=== PATIENT | male | born 1980 | race Caucasian/White ===

== ENCOUNTER → 2018-12-09 | Emergency (ER) | payer BC, SELFPAY ==
[~2018-12-09] MED LIST: D5 0.45 NS 1,000 ML IV ONE; D5 0.45 NS 1,000 ML IV SCH; D50W 25 GM/50 ML SYRINGE IV ONE; ENOXAPARIN 40 MG/0.4 ML SQ SCH; GLUCAGON 1 MG/VIAL IM PRN; INSULIN -REGULAR HUMAN 100 UNIT in NA CHLORIDE 0.9% 100 ML IV SCH; INSULIN -REGULAR HUMAN 50 UNIT/0.5 ML ML ONE; INSULIN GLARGINE 100 UNITS/ML SQ ONE; INSULIN GLARGINE 100 UNITS/ML SQ SCH; NA CHLORIDE 0.9% 1,000 ML IV SCH; NA CHLORIDE 0.9% 1,000 ML ONE; NA CHLORIDE 0.9% 100 ML IV ONE; NACHLORIDE 0.45% 1,000 ML IV SCH; ONDANSETRON 4 MG/2 ML VIAL IV PRN
--- OUTSIDE RECORDS SUMMARY | 2018-12-09 22:26 | XMS REPORT ---
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
--- OUTSIDE RECORDS SUMMARY | 2018-12-09 22:26 | XMS REPORT ---
:1980 Author Organization [employer] Care Team Providers Name Role Phone Acevedo, Theresa Provider Role Unavailable Allergies, Adverse Reactions, Alerts Substance Reaction Event Type N.K.D.A. Info Not Available Non Drug Allergy Problems Problem Type Condition Code Onset Dates Condition Status Assessment Back pain, lumbosacral M54.5 Active Problem [facility] current use of insulin Z79.4 Active Problem Type 2 diabetes mellitus with E11.65 Active hyperglycemia Problem Body mass index (BMI) 23.0-23.9, Z68.23 Active adult Problem Back pain, lumbosacral M54.5 Active Problem Hyperglycemia R73.9 Active Problem GERD (gastroesophageal reflux K21.9 Active disease) Problem Fatigue R53.83 Active Problem Diabetes E11.9 Active Problem Gastrointestinal bleeding K92.2 Active Assessment GERD (gastroesophageal reflux K21.9 Active disease) Assessment Hyperglycemia R73.9 Active Assessment [facility] current use of insulin Z79.4 Active Assessment Body mass index (BMI) 23.0-23.9, Z68.23 Active adult Assessment Type 2 diabetes mellitus with E11.65 Active hyperglycemia Medications Medication Code Code Instructions Start End Status Dosage System Date [facility] 56679980179 100 MG Orally Active 1 tablet Once a day Lisinopril ND 86349931420 5 MG Orally Active 1 tablet Once a day Aspirin [facility] 69438404755 81 MG Orally Active 1 tablet Once a day Jardiance [facility] 12626002182 25 MG Orally Active 1 tablet Once a day Omeprazole [facility] 38584241899 40 MG Orally Active 1 capsule Once a day Zyrtec [facility] 32898529766 10 MG Orally Active 1 tablet Allergy Once a day Silvadene [facility] 82276381601 1 % Externally Active 1 application Once a day to affected area Metformin HCl [facility] 64841318330 1000 MG Orally Active 1 tablet with Twice a day meals Lantus [facility] 06414125136 100 UNIT/ML Active 30 units SoloStar Subcutaneous once daily Tizanidine [facility] 31352171570 2 MG Orally at December 14November Active 1 tablet as HCl bedtime and october 2017, needed increase to 2018 every 8 hours as needed Results No Known Results Summary Purpose eClinicalWorks Submission
--- OUTSIDE RECORDS SUMMARY | 2018-12-09 22:27 | XMS REPORT ---
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
--- OUTSIDE RECORDS SUMMARY | 2018-12-09 22:27 | XMS REPORT ---
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
--- OUTSIDE RECORDS SUMMARY | 2018-12-09 22:27 | XMS REPORT ---
:1980 Author Organization [facility] Address [address] [place] [address] Dr. Dinh [address] [place] [id number] Care Team Providers Name Role Phone Unavailable Unavailable Unavailable Problems This patient has no known problems. Allergies, Adverse Reactions, Alerts This patient has no known allergies or adverse reactions. Medications This patient has no known medications.
--- OUTSIDE RECORDS SUMMARY | 2018-12-09 22:27 | XMS REPORT ---
:1980 Author Organization eClinicalWorks Care Team Providers Name Role Phone Acevedo, Na Provider Role Unavailable Allergies, Adverse Reactions, Alerts Substance Reaction Event Type N.K.D.A. 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 Problem Hyperglycemia R73.9 Active Problem Body mass index (BMI) 23.0-23.9, Z68.23 Active adult Problem Seasonal allergies J30.2 Active Problem Gastrointestinal bleeding K92.2 Active Problem GERD (gastroesophageal reflux K21.9 Active disease) Problem Back pain, lumbosacral M54.5 Active Problem Diabetes E11.9 Active Assessment Hyperglycemia R73.9 Active Assessment Seasonal allergies J30.2 Active Assessment Body mass index (BMI) 23.0-23.9, Z68.23 Active adult Assessment GERD (gastroesophageal reflux K21.9 Active disease) Assessment [facility] current use of insulin Z79.4 Active Assessment Type 2 diabetes mellitus with E11.65 Active hyperglycemia Assessment Acute effusion of left ear H65.192 Active Assessment Back pain, lumbosacral M54.5 Active Assessment Contact dermatitis due to L23.1 Active adhesives, unspecified contact dermatitis type Medications Medication Code Code Instructions Start End Status Dosage System Date Date Metformin HCl [facility] 40455007076 1000 MG Orally Active 1 tablet with Twice a day meals Lisinopril [facility] 93814660014 5 MG Orally Active 1 tablet Once a day Lantus [facility] 07278367219 100 UNIT/ML Active 30 units SoloStar Subcutaneous once daily FreeStyle [facility] 81502549957 - Apr 24, Active as directed Riana 2017 Sensor Clotrimazole- [facility] 35845207999 1-0.05 % Jun 14, Active 1 application Betamethasone Externally 2018 to affected Twice a day area Zyrtec [facility] 78075870596 10 MG Orally Active 1 tablet Allergy Once a day Silvadene [facility] 83304580675 1 % Externally Active 1 application Once a day to affected area Jardiance [facility] 14079921996 25 MG Orally Active 1 tablet Once a day Omeprazole [facility] 00842839188 40 MG Orally Active 1 capsule Once a day FreeStyle [facility] 38932834485 - Apr 24, Active as directed Riana 2017 [place] [facility] 53787868273 100 MG Orally Active 1 tablet Once a day Aspirin [facility] 76763933089 81 MG Orally Active 1 tablet Once a day Results No Known Results Summary Purpose eClinicalWorks Submission
[2018-12-10 00:17] LABS: Absolute Lymphocytes (CBC) 1.6 K/uL (0.7-4.9); Basophils % 0.7 % (0-1.3); Eosinophils % 4.7 % (0-4.4); MPV 10.3 fL (7.6-11.3); Monocytes % 9.2 % (3.3-12.3); RBC Red Blood Cell Count 4.27 M/uL (4.33-5.43)
[2018-12-10 00:18] LABS: Urine Blood NEGATIVE (NEG); Urine Glucose 2+ (NEG); Urine Protein NEGATIVE (NEG); Urine pH 5.5 (5.0-7.0)
[2018-12-10 00:22] LABS: ALT/SGPT 24 U/L (12-78); AST/SGOT 16 U/L (15-37); Albumin 3.8 g/dL (3.4-5.0); Alkaline Phosphatase 72 U/L (45-117); BUN Blood Urea Nitrogen 21 mg/dL (7-18); Bicarbonate 18 mmol/L (21-32); Bilirubin Direct < 0.1 mg/dL (0-0.2); Bilirubin Total 0.6 mg/dL (0.2-1.0); Magnesium 1.8 mg/dL (1.8-2.4); Potassium 4.3 mmol/L (3.5-5.1); Protein, Total 7.7 g/dL (6.4-8.2); Sodium Level 132 mmol/L (136-145); Troponin (Emerg Dept Use Only) < 0.02 ng/mL (0.0-0.045)
[2018-12-10 00:24] LABS: Glucose Level 428 mg/dL (74-106)
--- NOTE | 2018-12-10 00:36 | EDPHYS ---
Physician Documentation [facility] Name: Sony Yuen Age: 38 yrs Sex: Male : 1980 Arrival Date: 12/09/2018 Time: 22:40 Bed 17 Private MD: ED Physician Prashanth Soto HPI: 12/10 00:36 This 38 yrs old Male presents to ER via Ambulatory with complaints of High kb Blood Sugar, Abdominal Pain. 00:36 The patient or guardian reports hyperglycemia, that was potentially precipitated by no kb particular event, with the patient's symptoms witnessed by no one. Onset: The symptoms/episode began/occurred today. Associated signs and symptoms: Pertinent positives: abdominal pain, weakness, fatigue. Current symptoms: In the emergency department the patient's symptoms are unchanged from the initial presentation. The patient has not experienced similar symptoms in the past. The patient has not recently seen a physician. Historical: - Allergies: 12/09 22:45 No Known Allergies; ed1 - Home Meds: 22:45 omeprazole 40 mg Oral cpDR 1 cap once daily [Active]; Jardiance 10 mg oral tab 1 tab ed1 once daily [Active]; Januvia 100 mg oral tab 1 tab once daily [Active]; metformin 1,000 mg Oral TG24 1 tab 2 times per day [Active]; lisinopril 5 mg Oral tab 1 tab once daily [Active]; Lantus 100 unit/mL Sub-Q soln 30 unit daily [Active]; aspirin 81 mg Oral chew 1 tab once daily [Active]; nateglinide 120 mg oral tab 1 tab 3 times per day [Active]; - PMHx: 22:45 Diabetes - NIDDM; Esophigitis; ed1 - PSHx: 22:45 None; ed1 - Immunization history:: Adult Immunizations up to date. - Social history:: Smoking status: Patient uses tobacco products, denies chronic smoking, but will smoke occasionally. - Ebola Screening: : Patient negative for fever greater than or equal to 101.5 degrees Fahrenheit, and additional compatible Ebola Virus Disease symptoms Patient denies exposure to infectious person Patient denies travel to an Ebola-affected area in the 21 days before illness onset No symptoms or risks identified at this time. ROS: 12/10 00:35 Cardiovascular: Negative for chest pain, palpitations, and edema, Respiratory: Negative kb for shortness of breath, cough, wheezing, and pleuritic chest pain, Back: Negative for injury and pain, : Negative for injury, bleeding, discharge, and swelling, MS/Extremity: Negative for injury and deformity, Skin: Negative for injury, rash, and discoloration. Constitutional: Positive for malaise. Abdomen/GI: Positive for abdominal pain, Negative for nausea, vomiting, and diarrhea. Neuro: Positive for weakness. Exam: 00:35 Constitutional: This is a well developed, well nourished patient who is awake, alert, kb and in no acute distress. Head/Face: Normocephalic, atraumatic. Chest/axilla: Normal chest wall appearance and motion. Nontender with no deformity. No lesions are appreciated. Cardiovascular: Regular rate and rhythm with a normal S1 and S2. No gallops, murmurs, or rubs. Normal PMI, no JVD. No pulse deficits. Respiratory: Lungs have equal breath sounds bilaterally, clear to auscultation and percussion. No rales, rhonchi or wheezes noted. No increased work of breathing, no retractions or nasal flaring. Back: No spinal tenderness. No costovertebral tenderness. Full range of motion. Skin: Warm, dry with normal turgor. Normal color with no rashes, no lesions, and no evidence of cellulitis. MS/ Extremity: Pulses equal, no cyanosis. Neurovascular intact. Full, normal range of motion. Neuro: Awake and alert, GCS 15, oriented to person, place, time, and situation. Cranial nerves II-XII grossly intact. Motor strength 5/5 in all extremities. Sensory grossly intact. Cerebellar exam normal. Normal gait. 00:35 Abdomen/GI: Inspection: abdomen appears normal, Bowel sounds: normal, in all quadrants, Palpation: soft, in all quadrants, mild abdominal tenderness, in all quadrants. Vital Signs: 12/09 22:45 BP 133 / 84; Pulse 114; Resp 19; Temp 97.8; Pulse Ox 95% on R/A; Weight 72.57 kg; ed1 Height 6 ft. 0 in. (182.88 cm); Pain 09/08; 23:45 BP 121 / 82; Pulse 78; Resp 17; Pulse Ox 97% on R/A; ca1 12/10 00:22 BP 130 / 89; Pulse 80; Resp 17 S; Temp 98(O); Pulse Ox 97% on R/A; ca1 01:02 BP 121 / 86; Pulse 73; Resp 18; Pulse Ox 98% on R/A; Pain 0/10; mg2 02:10 BP 117 / 84; Pulse 73; Resp 18; Temp 98; Pulse Ox 97% on R/A; Pain 0/10; mg2 12/09 22:45 Body Mass Index 21.70 (72.57 kg, 182.88 cm) ed1 MDM: 12/09 23:06 Patient medically screened. kb 12/10 00:33 Data reviewed: vital signs, nurses notes. Data interpreted: Pulse oximetry: on room air kb is 97 %. Interpretation: normal. Counseling: I had a detailed discussion with the patient and/or guardian regarding: the historical points, exam findings, and any diagnostic results supporting the discharge/admit diagnosis, lab results, radiology results, the need for further work-up and treatment in the hospital. Physician consultation: Kimmy Gutierrez MD was contacted at 00:34, regarding admission, to the ICU, patient's condition, and will see patient in ED, shortly. 12/09 23:12 Order name: Acetone, Serum kb 12/09 23:12 Order name: Basic Metabolic Panel kb 12/09 23:12 Order name: CBC with Diff; Complete Time: 00:23 kb 12/09 23:12 Order name: LFT's; Complete Time: 00:29 kb 12/09 23:12 Order name: Magnesium; Complete Time: 00:29 kb 12/09 23:12 Order name: Troponin (emerg Dept Use Only); Complete Time: 00:29 kb 12/09 23:12 Order name: [place] Screen Profile; Complete Time: 00:09 kb 12/09 23:14 Order name: Acetone Level; Complete Time: 00:29 EDMS 12/09 23:14 Order name: Basic Metabolic Panel; Complete Time: 00:29 EDMS 12/09 23:42 Order name: Urine Dipstick--Ancillary (enter results); Complete Time: 00:23 mw2 12/10 00:32 Order name: ABG; Complete Time: 01:10 kb 12/10 05:08 Order name: Lipid Profile EDNC 12/10 05:08 Order name: Basic Metabolic Panel EDNC 12/10 05:12 Order name: Hemoglobin A1c EDMS 12/09 23:12 Order name: IV Start; Complete Time: 23:34 kb 12/09 23:12 Order name: XRAY Chest (1 view) kb 12/09 23:12 Order name: EKG; Complete Time: 23:15 kb 12/09 23:12 Order name: Cardiac monitoring; Complete Time: 23:35 kb 12/09 23:12 Order name: EKG - Nurse/Tech; Complete Time: 23:34 kb 12/09 23:12 Order name: Labs collected and sent; Complete Time: 23:34 kb 12/09 23:12 Order name: O2 Per Protocol; Complete Time: 23:34 kb 12/09 23:12 Order name: O2 Sat Monitoring; Complete Time: 23:34 kb 12/10 05:22 Order name: LDL, Direct EDMS Administered Medications: 12/09 23:35 Drug: NS 0.9% 1000 ml Route: IV; Rate: 1000 ml; Site: right antecubital; ca1 12/10 00:36 Follow up: Response: No adverse reaction; IV Status: Completed infusion ca1 00:52 Drug: NS 0.9% 1000 ml Route: IV; Rate: 1000 ml; Site: right antecubital; mg2 03:21 Follow up: Response: No adverse reaction; IV Status: Completed infusion; IV Intake: mg2 1000ml 00:53 Drug: Insulin Drip - (Insulin Regular Human 100 units, NS 0.9% 100 ml) {Co-Signature: mg2 ca1 (Yisel Anthony RN).} Route: IV; Rate: calculated rate; Site: right antecubital; Point of Care Testing: Blood Glucose: 12/09 22:45 Blood Glucose: 438 mg/dL; ed1 12/10 02:10 Blood Glucose: 161 mg/dL; mg2 Ranges: Critical Glucose Levels:Adult <50 mg/dl or >400 mg/dl <40 mg/dl or >180 mg/dl Disposition: 12/10/18 00:34 Hospitalization ordered by Kimmy Gutierrez for Inpatient Admission. Preliminary diagnosis is Diabetes mellitus due to underlying condition with ketoacidosis without coma. - Bed requested for [facility] ER HOLD. - Status is Inpatient Admission. bp - Condition is Stable. - Problem is new. - Symptoms are unchanged. UTI on Admission? No Signatures: Dispatcher [employer] EDMS Avani Myers, DUMPSTER DRIVER-C DUMPSTER DRIVER-Ckb Ruba Damon RN RN mw Stephani Cruz, RN RN ed1 Leon Leos, RN RN bp [place] Cantu, RN RN mg2 Yisel Anthony, RN RN ca1 Yisel Anthony RN ca1 Corrections: (The following items were deleted from the chart) 01:06 00:34 Hospitalization Ordered by Kimmy Gutierrez MD for Inpatient Admission. Preliminary mw diagnosis is Diabetes mellitus due to underlying condition with ketoacidosis without coma. Bed requested for Intensive Care Unit. Status is Inpatient Admission. Condition is Stable. Problem is new. Symptoms are unchanged. UTI on Admission? No. kb 08:05 01:06 12/10/2018 00:34 Hospitalization Ordered by Kimmy Gutierrez MD for Inpatient bp Admission. Preliminary diagnosis is Diabetes mellitus due to underlying condition with ketoacidosis without coma. Bed requested for [facility] ER HOLD. Status is Inpatient Admission. Condition is Stable. Problem is new. Symptoms are unchanged. UTI on Admission? No. mw
--- NOTE | 2018-12-10 00:36 | ER ---
Nurse's Notes [facility] Name: Sony Yuen Age: 38 yrs Sex: Male : 1980 Arrival Date: 12/09/2018 Time: 22:40 Bed 17 Private MD: Diagnosis: Diabetes mellitus due to underlying condition with ketoacidosis without coma Presentation: 12/09 22:40 Presenting complaint: Patient states: I have been very tired for over a week now. I ed1 checked my blood sugar at home and it was 430. I have been having abdominal pain. I feel so weak. Transition of care: patient was not received from another setting of care. Onset of symptoms was December 02, 2018. Risk Assessment: Do you want to hurt yourself or someone else? Patient reports no desire to harm self or others. Initial Sepsis Screen: Does the patient meet any 2 criteria? No. Patient's initial sepsis screen is negative. Does the patient have a suspected source of infection? No. Patient's initial sepsis screen is negative. Care prior to arrival: None. 22:40 Method Of Arrival: Ambulatory ed1 22:40 Acuity: BEV 3 ed1 Triage Assessment: 22:45 General: Appears in no apparent distress. Behavior is calm, cooperative. Pain: ed1 Complains of pain in abdomen Pain currently is 3 out of 10 on a pain scale. at worst was 9 out of 10 on a pain scale. GI: Reports upper abdominal pain, Patient currently denies diarrhea, nausea, vomiting. Historical: - Allergies: 22:45 No Known Allergies; ed1 - Home Meds: 22:45 omeprazole 40 mg Oral cpDR 1 cap once daily [Active]; Jardiance 10 mg oral tab 1 tab ed1 once daily [Active]; Januvia 100 mg oral tab 1 tab once daily [Active]; metformin 1,000 mg Oral TG24 1 tab 2 times per day [Active]; lisinopril 5 mg Oral tab 1 tab once daily [Active]; Lantus 100 unit/mL Sub-Q soln 30 unit daily [Active]; aspirin 81 mg Oral chew 1 tab once daily [Active]; nateglinide 120 mg oral tab 1 tab 3 times per day [Active]; - PMHx: 22:45 Diabetes - NIDDM; Esophigitis; ed1 - PSHx: 22:45 None; ed1 - Immunization history:: Adult Immunizations up to date. - Social history:: Smoking status: Patient uses tobacco products, denies chronic smoking, but will smoke occasionally. - Ebola Screening: : Patient negative for fever greater than or equal to 101.5 degrees Fahrenheit, and additional compatible Ebola Virus Disease symptoms Patient denies exposure to infectious person Patient denies travel to an Ebola-affected area in the 21 days before illness onset No symptoms or risks identified at this time. Screenin:35 Abuse screen: Denies threats or abuse. Denies injuries from another. Nutritional ca1 screening: No deficits noted. Tuberculosis screening: No symptoms or risk factors identified. Fall Risk None identified. Assessment: 23:35 General: Appears in no apparent distress. comfortable, Behavior is calm, cooperative, ca1 appropriate for age. General: Reports fatigue for 12-24 hours. Pain: Complains of pain in abdomen Pain does not radiate. Pain currently is 7 out of 10 on a pain scale. Quality of pain is described as squeezing, Pain began 1 day ago. Is intermittent. Neuro: Level of Consciousness is awake, alert, obeys commands, Oriented to person, place, time, situation. Cardiovascular: Heart tones S1 S2 present Capillary refill < 3 seconds Patient's skin is warm and dry. Cardiovascular: Rhythm is sinus rhythm. Respiratory: Airway is patent Respiratory effort is even, unlabored, Respiratory pattern is regular, symmetrical, Breath sounds are clear bilaterally. GI: Abdomen is flat, non-distended, Bowel sounds present X 4 quads. Abd is soft and non tender X 4 quads. Patient currently denies diarrhea, nausea, vomiting. : No deficits noted. No signs and/or symptoms were reported regarding the genitourinary system. EENT: No deficits noted. No signs and/or symptoms were reported regarding the EENT system. Derm: Skin is intact, is healthy with good turgor, Skin is pink, warm \T\ dry. Musculoskeletal: Circulation, motion, and sensation intact. Capillary refill < 3 seconds, Range of motion: intact in all extremities. 12/10 00:22 Reassessment: Patient appears in no apparent distress at this time. Patient and/or ca1 family updated on plan of care and expected duration. Pain level reassessed. Patient is alert, oriented x 3, equal unlabored respirations, skin warm/dry/pink. 01:02 Reassessment: patient informed about the need for hospitalization to ICU. patient mg2 agreed. 02:11 Reassessment: documentation will continue in [facility]. mg2 07:00 Reassessment: PT IS ER HOLD. SEE [facility] FOR FURTHER DATA. bp 07:55 Reassessment: PT D/C BY [facility]. bp Vital Signs: 12/09 22:45 BP 133 / 84; Pulse 114; Resp 19; Temp 97.8; Pulse Ox 95% on R/A; Weight 72.57 kg; ed1 Height 6 ft. 0 in. (182.88 cm); Pain 3/10; 23:45 BP 121 / 82; Pulse 78; Resp 17; Pulse Ox 97% on R/A; ca1 12/10 00:22 BP 130 / 89; Pulse 80; Resp 17 S; Temp 98(O); Pulse Ox 97% on R/A; ca1 01:02 BP 121 / 86; Pulse 73; Resp 18; Pulse Ox 98% on R/A; Pain 0/10; mg2 02:10 BP 117 / 84; Pulse 73; Resp 18; Temp 98; Pulse Ox 97% on R/A; Pain 0/10; mg2 0610 22:45 Body Mass Index 21.70 (72.57 kg, 182.88 cm) ed1 ED Course: 12/09 22:40 Patient arrived in ED. ed1 22:41 Triage completed. ed1 22:45 Arm band placed on left wrist. Patient placed in waiting room, Patient notified of wait ed1 time. 23:06 Avani Myers FNP-C is PHCP. kb 23:06 Prashanth Soto MD is Attending Physician. kb 23:08 Yisel Anthony, REYNALDO is Primary Nurse. ca1 23:32 Inserted saline lock: 18 gauge in right antecubital area, using aseptic technique. ca1 ,using aseptic technique. by Iliana Diehl, radio station operator Blood collected. 23:35 Patient has correct armband on for positive identification. Placed in gown. Bed in low ca1 position. Call light in reach. Side rails up X 1. shelter monitor on. Pulse ox on. NIBP on. Warm blanket given. 23:41 No provider procedures requiring assistance completed. ca1 23:43 XRAY Chest (1 view) In Process Unspecified. EDMS 12/10 00:02 X-ray completed. Portable x-ray completed in exam room. Patient tolerated procedure kw well. 00:34 Kimmy Gutierrez MD is Hospitalizing Provider. kb 00:52 Inserted saline lock: 20 gauge in left antecubital area, using aseptic technique. ca1 08:05 IV discontinued, intact, bleeding controlled, No redness/swelling at site. Pressure bp dressing applied. Administered Medications: 12/09 23:35 Drug: NS 0.9% 1000 ml Route: IV; Rate: 1000 ml; Site: right antecubital; ca1 06 00:36 Follow up: Response: No adverse reaction; IV Status: Completed infusion ca1 00:52 Drug: NS 0.9% 1000 ml Route: IV; Rate: 1000 ml; Site: right antecubital; mg2 03:21 Follow up: Response: No adverse reaction; IV Status: Completed infusion; IV Intake: mg2 1000ml 00:53 Drug: Insulin Drip - (Insulin Regular Human 100 units, NS 0.9% 100 ml) {Co-Signature: mg2 ca1 (Yisel Anthony RN).} Route: IV; Rate: calculated rate; Site: right antecubital; Point of Care Testing: Blood Glucose: 12/09 22:45 Blood Glucose: 438 mg/dL; ed1 12/10 02:10 Blood Glucose: 161 mg/dL; mg2 Ranges: Intake: 03:21 IV: 1000ml; Total: 1000ml. mg2 Outcome: 00:34 Decision to Hospitalize by Provider. kb 08:05 Discharged to home ambulatory. bp 08:05 Condition: stable 08:05 Discharge instructions given to patient, Instructed on discharge instructions, follow up and referral plans. medication usage, Demonstrated understanding of instructions, follow-up care, medications. 08:05 Patient left the ED. bp Signatures: Dispatcher [employer] EDKY Avani Myers, HR SHARED SERVICES CONSULTANTJuan Carlos GOSS-Stephani Mccall RN RN ed1 Maryellen Tipton Brian, RN RN Cleveland Zapata RN RN mg2 Yisel Anthony RN RN ca1 Yisel Anthony RN ca1
[2018-12-10 00:54] LABS: Arterial Blood Carboxyhemoglob 0.8 % (0-1.5); Blood O2 Saturation 96.4 % (92-98.5)
[2018-12-10 03:01] VITALS: BMI 3124.4
[2018-12-10 05:04] LABS: BUN Blood Urea Nitrogen 19 mg/dL (7-18); Bicarbonate 21 mmol/L (21-32); Glucose Level 118 mg/dL (74-106); Potassium 3.2 mmol/L (3.5-5.1); Sodium Level 140 mmol/L (136-145)
[2018-12-10 05:05] LABS: HDL Cholesterol 25 mg/dL (40-60); LDL Cholesterol, Calculated ND (<130)
--- NOTE | 2018-12-10 05:14 | P.HP ---
Certification for Inpatient Patient admitted to: Inpatient With expected LOS: >2 Midnights Practitioner: I am a practitioner with admitting privileges, knowledge of patient current condition, hospital course, and medical plan of care. Services: Services provided to patient in accordance with Admission requirements found in Title 42 Section 412.3 of the Code of Federal Regulations Patient History Date of Service: 12/10/18 Reason for admission: DKA History of Present Illness: Mr Yuen is a 38 years old male with history of DM II, insulin dependent, who start to feel progressively weak about 5 days ago. Yesterday, he start with abdominal pain, in epigastric area, associated with nausea, no vomiting. BS was elevated, 420. He denied fever or chills. He has never had this symptoms before. At my encounter he was alert and oriented. Lab work remarkable for hyperglycemia, low bicarbonate with anion gap of 15. No obvious signs of acute infection. Allergies No Known Allergies Allergy (Verified 08/26/14 08:29) Home Medications: Aspirin [Children's Aspirin] 1 tab PO DAILY 08/26/14 Esomeprazole Mag Trihydrate [Nexium] 40 mg PO DAILY 08/26/14 Insulin Glargine Human [Lantus*] 36 unit SQ DAILY 08/26/14 Lisinopril [Prinivil*] 5 mg PO DAILY 08/26/14 Metformin HCl [Glucophage] 1,000 mg PO BID 08/26/14 Sitagliptin Phosphate [Januvia*] 100 mg PO DAILY 08/26/14 - Past Medical/Surgical History Has patient received pneumonia vaccine in the past: Yes Diabetic: Yes -: DM II -: esophagitis -: vasectomy - Social History Smoking Status: Light Tobacco smoker (1-9 cigarettes/day) Counseled patient to stop smoking for: less than 10 minutes Alcohol use: Yes CD- Drugs: No Caffeine use: Yes Place of Residence: Home Review of Systems 10-point ROS is otherwise unremarkable Physical Examination - Physical Exam General: Alert, In no apparent distress HEENT: Atraumatic, PERRLA, Mucous membr. moist/pink, EOMI, Sclerae nonicteric Neck: Supple, 2+ carotid pulse no bruit, No LAD, Without JVD or thyroid abnormality Respiratory: Clear to auscultation bilaterally, Normal air movement Cardiovascular: Regular rate/rhythm, Normal S1 S2 Gastrointestinal: Normal bowel sounds, Tenderness (tender to palpation epigastric area.) Musculoskeletal: No tenderness Integumentary: No rashes Neurological: Normal gait, Normal speech, Normal strength at 5/5 x4 extr, Normal tone, Normal affect Lymphatics: No axilla or inguinal lymphadenopathy - Studies Laboratory Data (last 24 hrs) 12/09/18 23:34: WBC 5.2, Hgb 15.2, Hct 43.0, Plt Count 197 12/09/18 23:34: Sodium 132 L, Potassium 4.3, BUN 21 H, Creatinine 1.38 H, Glucose 428 H*, Magnesium 1.8, Total Bilirubin 0.6, AST 16, ALT 24, Alkaline Phosphatase 72 Assessment and Plan - Problems (Diagnosis) (1) Diabetes mellitus Current Visit: Yes Status: Acute Qualifiers: Diabetes mellitus type: type 2 Diabetes mellitus technician's helper insulin use: with fpc use Diabetes mellitus complication status: with other specified complication Qualified Code(s): E11.69 - Type 2 diabetes mellitus with other specified complication; Z79.4 - detention (current) use of insulin (2) DKA (diabetic ketoacidoses) Current Visit: Yes Status: Acute Qualifiers: Diabetes mellitus type: type 2 Diabetes mellitus complication detail: without coma Qualified Code(s): E11.10 - Type 2 diabetes mellitus with ketoacidosis without coma - Plan The patient will be admitted to the hospital due to mild DKA. Will continue with insulin drip and fluid replacement by protocol. - Advance Directives Does patient have a Living Will: No Does patient have a Durable POA for Healthcare: No - Code Status/Comfort Care Code Status Assessed: Yes Code Status: Full Code
[2018-12-10 05:19] LABS: LDL, Direct 108 mg/dL (100-129)
[2018-12-10 07:24] VITALS: BP 115/79; TEMP 98.7
--- NOTE | 2018-12-10 08:17 | RAD REPORT ---
EXAM DESCRIPTION: Sugar Single View12/09/2018 11:44 pm CLINICAL HISTORY: Shortness of breath COMPARISON: none FINDINGS: The lungs appear clear of acute infiltrate. The heart is normal size IMPRESSION: No acute abnormalities displayed
[2018-12-10 09:16] VITALS: O2SAT 97
--- NOTE | 2018-12-10 12:04 | EKG ---
Test Date: 2018-12-09 Test Time: 23:25:12 Volunteer Fire Fighter: STEFANO MEASUREMENT RESULTS: Intervals: Rate: 79 PA: 134 QRSD: 82 QT: 350 QTc: 401 [place]: P: 54 PA: 134 QRS: 69 T: 46 INTERPRETIVE STATEMENTS: Normal sinus rhythm Normal ECG No previous ECG available for comparison Electronically Signed On 12-10-18 12:02:30 CDT by Jadiel Yeboah
--- NOTE | 2018-12-10 14:02 | P.SSS ---
Patient History Date of Service: 12/10/18 Primary Care Provider: Dr. Acevedo; Endocrine-Dr. Roe Reason for admission: Nausea and vomiting History of Present Illness: 38-year-old male presented emergency room with increased nausea and vomiting. Patient has diabetes mellitus type 2. He is insulin dependent. Patient reports not taking his basal insulin at times. Patient found to have DKA but mild. Patient was seen and evaluated the emergency room. He was treated for DKA. This resolved very quickly. He was transition to his normal regimen. Patient without any significant nausea and vomiting. Patient discharged home to continue with his medication. Strict compliance with his basal insulin was addressed in detail. Patient understands this. Patient plans to follow up with Endocrinology Allergies No Known Allergies Allergy (Verified 08/26/14 08:29) Home medications list reviewed: Yes Home Medications: Aspirin [Children's Aspirin] 1 tab PO DAILY 08/26/14 Esomeprazole Mag Trihydrate [Nexium] 40 mg PO DAILY 08/26/14 Lisinopril [Prinivil*] 5 mg PO DAILY 08/26/14 Metformin HCl [Glucophage] 1,000 mg PO BID 08/26/14 Sitagliptin Phosphate [Januvia*] 100 mg PO DAILY 08/26/14 Insulin Glargine Human [Lantus*] 36 unit SQ DAILY #1 noel 12/10/18 - Past Medical/Surgical History Has patient received pneumonia vaccine in the past: Yes Diabetic: Yes -: DM II -: Hypertension -: GERD -: vasectomy Psychosocial/ Personal History: Patient lives at home. - Family History Family History: Reviewed- Non-Contributory - Social History Smoking Status: Light Tobacco smoker (1-9 cigarettes/day) Alcohol use: Yes CD- Drugs: No Caffeine use: Yes Place of Residence: Home Review of Systems General: As per HPI Eyes: Unremarkable ENT: Unremarkable Respiratory: Unremarkable Cardiovascular: Unremarkable Gastrointestinal: Nausea, Vomiting, As per HPI Genitourinary: Unremarkable Musculoskeletal: Unremarkable Integumentary: Unremarkable Neurological: Unremarkable Lymphatics: Unremarkable Physical Examination - Vital Signs Temperature: 98.7 F Blood Pressure: 115/79 Pulse: 85 Respirations: 16 Pulse Ox (%): 99 - Physical Exam General: Alert, In no apparent distress, Oriented x3, Cooperative HEENT: Atraumatic, Mucous membr. moist/pink Neck: Supple Respiratory: Clear to auscultation bilaterally, Normal air movement Cardiovascular: Normal pulses, Regular rate/rhythm Gastrointestinal: Normal bowel sounds, Soft and benign, Non-distended, No tenderness, No masses, No rebound, No guarding Musculoskeletal: No erythema, No tenderness, No warmth Integumentary: No tenderness/swelling, No erythema, No warmth, No cyanosis Neurological: Normal speech, Normal strength at 5/5 x4 extr, Normal tone, Normal affect - Studies Laboratory Data (last 24 hrs) 12/10/18 12:30: Sodium Cancelled, Potassium Cancelled, BUN Cancelled, Creatinine Cancelled, Glucose Cancelled 12/10/18 08:30: Sodium Cancelled, Potassium Cancelled, BUN Cancelled, Creatinine Cancelled, Glucose Cancelled 12/10/18 04:30: Triglycerides 800 H, Cholesterol 227 H, LDL Cholesterol Direct 108, HDL Cholesterol 25 L, Cholesterol/HDL Ratio 9.08 12/10/18 04:30: Sodium 140, Potassium 3.2 L, BUN 19 H, Creatinine 0.89, Glucose 118 H 12/09/18 23:34: WBC 5.2, Hgb 15.2, Hct 43.0, Plt Count 197 12/09/18 23:34: Sodium 132 L, Potassium 4.3, BUN 21 H, Creatinine 1.38 H, Glucose 428 H*, Magnesium 1.8, Total Bilirubin 0.6, AST 16, ALT 24, Alkaline Phosphatase 72 Treatment Summary: Impression: DKA with diabetes mellitus type 2, insulin-dependent Hypertension GERD Plan: Patient presented with DKA. Patient with history of diabetes type 2 insulin dependent. DKA has resolved. Patient without any nausea, vomiting at this time. Lab significantly improved. Hemoglobin A1c 11.0. Patient has not been compliant with his insulin regimen-Lantus. Patient understands now that he needs to take his insulin-Lantus 36 units SC daily. He had not been taking this on a regular basis. At discharge patient will continue with Lantus 36 units subcu daily. Recommendation is to maintain blood sugars less 140 fasting and less than 200 after meals. If blood sugar remains above 200 he can increase Lantus by 1-2 units daily for better blood sugar control. Further adjustment in medication may be required. His PCP or handbag designer can further adjust his medication. Patient also takes metformin 1000 mg 1 pill twice daily and Januvia 100 mg daily. Patient will continue with his diabetic regimen. Recommendation is for the patient to follow up with Endocrinology in 1 -2 weeks to follow up this hospitalization and continue his care. Education on DKA and diabetes mellitus will be provided. Patient with hypertension. Patient will resume lisinopril 5 mg daily. Recommendation is to maintain blood pressure less than 150/80. Further adjustment can be done by his PCP for better control. Patient with history of GERD. At discharge he will continue with Nexium 40 mg daily. - Disposition Disposition: ROUTINE DISCHARGE Condition: GOOD Prescriptions: Insulin Glargine Human [Lantus*] 36 unit SQ DAILY #1 noel Followup: Theresa Acevedo DO [Primary Care Provider] - Prvsamir CAMPOS As Needed Patient Discharge Instructions: 1. Patient will follow up with his PCP on Sunday to follow up this hospitalization. 2. Patient presented with DKA. Patient with history of diabetes type 2 insulin dependent. DKA has resolved. Patient without any nausea, vomiting. Lab stable at this time. Hemoglobin A1c 11.0. Patient has not been compliant with his insulin regimen. Patient understands that the patient needs to take his insulin-Lantus 36 units SC daily. At discharge patient will continue with Lantus 36 units subcu daily. Recommendation is to maintain blood sugars less 140 fasting and less than 200 after meals. If blood sugar remains above 200 he can increase Lantus by 1-2 units daily for better blood sugar control. Further adjustment in medication may be required. His PCP or handbag designer can further adjust his medication. Patient also takes metformin 1000 mg 1 pill twice daily and Januvia 100 mg daily. Patient will continue with his diabetic regimen. Recommendation is for the patient to follow up with Endocrinology in 1-2 weeks to follow up this hospitalization and continue his care. Education on DKA and diabetes mellitus will be provided. 3. Patient with hypertension. Patient will resume lisinopril 5 mg daily. Recommendation is to maintain blood pressure less than 150/80. Further adjustment can be done by his PCP for better control. 4. Patient with history of GERD. At discharge he will continue with Nexium 40 mg daily. Diet: ADA (2000 ADA) Activity: Ad amanda Time Spent Managing Pts Care (In Minutes): 55
== END | disposition home or self-care (01) ==
LOC: ER 22:24 → UNDOADMIN 12-10 01:30 → ERHOLD 12-10 01:30 → UNDODISIN 12-10 07:45
DX: E08.10 Diabetes mellitus due to underlying condition with ketoacidosis without coma (principal); I10 Essential (primary) hypertension; K21.9 Gastro-esophageal reflux disease without esophagitis; F17.210 Nicotine dependence, cigarettes, uncomplicated; Z79.82 Long term (current) use of aspirin; Z79.4 Long term (current) use of insulin
CPT/HCPCS: 36415; 71045; 80048; 80076; 81003; 82010; 82962; 83735; 84484; 85025; 86308; 93005; 96361; 96374; 99285; J7030

== ENCOUNTER 2019-08-18 21:05 | Inpatient (IN) | payer BC ==
--- OUTSIDE RECORDS SUMMARY | 2019-08-18 21:08 | XMS REPORT ---
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 Problem Hyperglycemia R73.9 Active Problem Body mass index (BMI) 23.0-23.9, Z68.23 Active adult Problem Seasonal allergies J30.2 Active Problem Gastrointestinal bleeding K92.2 Active Problem GERD (gastroesophageal reflux K21.9 Active disease) Problem Back pain, lumbosacral M54.5 Active Problem Diabetes E11.9 Active Medications Medication Code Code Instructions Start End Status Dosage System Date Date BD Ultra-Fine [facility] [id number] 4mm x 32Gm December 23, Active 1 needle Cady Pen subcutaneously 2019 with [place] once a day Tresiba pen Results No Known Results Summary Purpose [employer] Submission
--- OUTSIDE RECORDS SUMMARY | 2019-08-18 21:08 | XMS REPORT ---
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
--- OUTSIDE RECORDS SUMMARY | 2019-08-18 21:08 | XMS REPORT ---
:1980 Author Organization [employer] Care Team Providers Name Role Phone Noah Wallace Provider Role Unavailable Allergies No Known Allergies Problems Problem Type Condition Code Onset Dates Condition Status Problem Type 2 diabetes mellitus with E11.65 Active hyperglycemia Problem Fatigue R53.83 Active Problem shelter current use of insulin Z79.4 Active Problem Hyperglycemia R73.9 Active Problem Body mass index (BMI) 23.0-23.9, Z68.23 Active adult Problem Seasonal allergies J30.2 Active Problem Gastrointestinal bleeding K92.2 Active Problem GERD (gastroesophageal reflux K21.9 Active disease) Problem Back pain, lumbosacral M54.5 Active Problem Diabetes E11.9 Active Medications Medication Code Code Instructions Start End Status Dosage System Date Date BD Ultra-Fine [facility] [id number] 4mm x 32Gm December 23, Active 1 needle Cady Pen subcutaneously 2019 with [place] once a day Tresiba pen Results No Known Results Summary Purpose [employer] Submission
--- OUTSIDE RECORDS SUMMARY | 2019-08-18 21:08 | XMS REPORT ---
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
--- OUTSIDE RECORDS SUMMARY | 2019-08-18 21:08 | XMS REPORT ---
:1980 Author Organization eClinicalWorks Care Team Providers Name Role Phone Noah Wallace Provider Role Unavailable Allergies, Adverse Reactions, Alerts Substance Reaction Event Type N.K.D.A. 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 Active Problem GERD (gastroesophageal reflux K21.9 Active disease) Problem Fatigue R53.83 Active Problem Seasonal allergies J30.2 Active Problem Hyperglycemia R73.9 Active Problem Mixed hyperlipidemia E78.2 Active Problem Diabetes E11.9 Active Problem Gastrointestinal bleeding K92.2 Active Problem Body mass index (BMI) 23.0-23.9, Z68.23 Active adult Problem Back pain, lumbosacral M54.5 Active Assessment Microalbuminuria R80.9 Active Assessment Body mass index (BMI) 23.0-23.9, Z68.23 Active adult Assessment Mixed hyperlipidemia E78.2 Active Assessment [facility] current use of insulin Z79.4 Active Assessment Type 2 diabetes mellitus with E11.65 Active hyperglycemia Assessment GERD (gastroesophageal reflux K21.9 Active disease) Assessment Seasonal allergies J30.2 Active Problem Type 2 diabetes mellitus with E11.65 Active hyperglycemia Medications Medication Code Code Instructions Start End Status Dosage System Date Date Clotrimazole-B [facility] 75583547648 1-0.05 % Jun 14, Active 1 application etamethasone Externally Twice 2017 to affected a day area FreeStyle ND 86130598979 - Apr 24, Active as directed Riana 2017 [place] Januvia ND 06379436874 100 MG Orally Active 1 tablet Once a day Lisinopril ND 88079655760 5 MG Orally Once Active 1 tablet a day BD Ultra-Fine ND 71796732727 4mm x 32Gm November Active 1 needle with Cady Pen subcutaneously , Tresiba pen [place] once a day 2018 Omeprazole ND 31375319660 40 MG Orally Once Active 1 capsule a day Zyrtec Allergy [facility] 45811060732 10 MG Orally Once Active 1 tablet a day Silvadene [facility] 11651879775 1 % Externally Active 1 application Once a day to affected area Metformin HCl ND 51807264086 1000 MG Orally Active 1 tablet with Twice a day meals Jardiance [facility] 38689098920 25 MG Orally Once Feb Active 1 tablet a day 2019 FreeStyle [facility] 41859489866 - Apr 24, Active as directed Riana 14 2017 Sensor Tresiba [facility] 62335076309 100 UNIT/ML November Active inject 23 FlexTouch Subcutaneous Once 17, units a day 2018 Omeprazole [facility] 99438708512 40 MG Orally Once Active 1 capsule a day Nateglinide [facility] 71445416202 120 MG Orally Feb 13, Active 1 tablet Three times a day 2018 before meals Aspirin [facility] 57442566245 81 MG Orally Once Active 1 tablet a day Results Name Result Date Reference Range Unit Abnormality Flag HEMOGLOBIN A1C ----A1C 7.9 [id number] Summary Purpose eClinicalWorks Submission
--- OUTSIDE RECORDS SUMMARY | 2019-08-18 21:08 | XMS REPORT ---
:1980 Author Organization eClinicalWorks Care Team Providers Name Role Phone Noah Wallace Provider Role Unavailable Allergies, Adverse Reactions, Alerts Substance Reaction Event Type N.K.D.A. 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 Active Assessment Noncompliance w/medication treatment Z91.14 Active due to intermit use of medication Assessment Diabetic ketoacidosis without coma E11.10 Active associated with type 2 diabetes mellitus Assessment Type 2 diabetes mellitus with E11.65 Active hyperglycemia Problem Hyperglycemia R73.9 Active Problem Body mass index (BMI) 23.0-23.9, Z68.23 Active adult Problem Seasonal allergies J30.2 Active Problem Gastrointestinal bleeding K92.2 Active Problem GERD (gastroesophageal reflux K21.9 Active disease) Problem Back pain, lumbosacral M54.5 Active Problem Diabetes E11.9 Active Medications Medication Code Code Instructions Start End Status Dosage System Date Date Jardiance [facility] 69091066887 25 MG Orally Active 1 tablet Once a day Lisinopril [facility] 29247440122 5 MG Orally Active 1 tablet Once a day FreeStyle [facility] 29590342928 - Apr 24, Active as directed Riana [address] [facility] 18474490525 10 MG Orally Active 1 tablet Allergy Once a day Lantus [facility] 37643379763 100 UNIT/ML Inactive 30 units SoloStar Subcutaneous once daily Lisinopril ND 81431319934 5 MG Orally Active 1 tablet Once a day Metformin HCl ND 57007450037 1000 MG Orally Active 1 tablet with Twice a day meals Clotrimazole- [facility] 06945223046 1-0.05 % Jun 14, Active 1 application Betamethasone Externally 2018 to affected Twice a day area Aspirin ND 67550169150 81 MG Orally Active 1 tablet Once a day Silvadene [facility] 43807288996 1 % Externally Active 1 application Once a day to affected area Januvia [facility] 29633354907 100 MG Orally Active 1 tablet Once a day FreeStyle [facility] 76680704775 - Apr 24, Active as directed Riana 2017 [place] [address]iance [facility] 69202351186 25 MG Orally Active 1 tablet Once a day Tresiba [facility] 38905994793 100 UNIT/ML December 16, Active inject 25 FlexTouch Subcutaneous 2019 units Once a day Metformin HCl [facility] 37649975139 1000 MG Orally Active 1 tablet with Twice a day meals Omeprazole [facility] 92655219755 40 MG Orally Active 1 capsule Once a day Results No Known Results Summary Purpose eClinicalWorks Submission
--- OUTSIDE RECORDS SUMMARY | 2019-08-18 21:08 | XMS REPORT ---
:1980 Author Organization eClinicalWorks Care Team Providers Name Role Phone Wallace Zamora Provider Role Unavailable Allergies, Adverse Reactions, Alerts Substance Reaction Event Type N.K.D.A. 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 Problem Hyperglycemia R73.9 Active Problem Body mass index (BMI) 23.0-23.9, Z68.23 Active adult Problem Seasonal allergies J30.2 Active Problem Gastrointestinal bleeding K92.2 Active Problem GERD (gastroesophageal reflux K21.9 Active disease) Problem Back pain, lumbosacral M54.5 Active Problem Diabetes E11.9 Active Medications Medication Code Code Instructions Start End Status Dosage System Date Date Silvadene [facility] 66983423574 1 % Externally Active 1 application Once a day to affected area Clotrimazole- [facility] 34800243697 1-0.05 % Jun 14, Active 1 application Betamethasone Externally 2018 to affected Twice a day area Zyrtec [facility] 67317575010 10 MG Orally Active 1 tablet Allergy Once a day Lisinopril [facility] 53991682657 5 MG Orally Active 1 tablet Once a day Jardiance [facility] 24423126441 25 MG Orally Active 1 tablet Once a day Metformin HCl [facility] 16187885884 1000 MG Orally Active 1 tablet with Twice a day meals Aspirin [facility] 36087834301 81 MG Orally Active 1 tablet Once a day Jardiance [facility] 65328905069 25 MG Orally Active 1 tablet Once a day FreeStyle [facility] 82042733117 - Apr 24, Active as directed Riana 2017 S[place] FreeStyle [facility] 93913776375 - Apr 24, Active as directed Riana 2017 [place] Januvia [facility] 62987292296 100 MG Orally Active 1 tablet Once a day Tresiba [facility] 71310165415 100 UNIT/ML December 16, Active inject 25 FlexTouch Subcutaneous 2019 units Once a day Metformin HCl [facility] 59589445803 1000 MG Orally Active 1 tablet with Twice a day meals Omeprazole [facility] 56649318966 40 MG Orally Active 1 capsule Once a day Lisinopril [facility] 72526231632 5 MG Orally Active 1 tablet Once a day Results No Known Results Summary Purpose eClinicalWorks Submission
--- OUTSIDE RECORDS SUMMARY | 2019-08-18 21:08 | XMS REPORT ---
:1980 Author Organization eClinicalWorks Care Team Providers Name Role Phone Anthony Zamorah Provider Role Unavailable Allergies, Adverse Reactions, Alerts Substance Reaction Event Type N.K.D.A. Info Not Available Non Drug Allergy Problems Problem Type Condition Code Onset Dates Condition Status Problem Fatigue R53.83 Active Problem Gastrointestinal bleeding K92.2 Active Problem GERD (gastroesophageal reflux K21.9 Active disease) Problem Mixed hyperlipidemia E78.2 Active Assessment Noncompliance with dietary Z91.11 Active restriction Problem Seasonal allergies J30.2 Active Problem Noncompliance with dietary Z91.11 Active restriction Problem Back pain, lumbosacral M54.5 Active Problem Diabetes E11.9 Active Problem Hyperglycemia R73.9 Active Problem Body mass index (BMI) 23.0-23.9, Z68.23 Active adult Assessment Body mass index (BMI) 23.0-23.9, Z68.23 Active adult Assessment GERD (gastroesophageal reflux K21.9 Active disease) Assessment Mixed hyperlipidemia E78.2 Active Assessment Microalbuminuria R80.9 Active Assessment Type 2 diabetes mellitus with E11.65 Active hyperglycemia Assessment Seasonal allergies J30.2 Active Problem Type 2 diabetes mellitus with E11.65 Active hyperglycemia 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 Problem [facility] current use of insulin Z79.4 Active Medications Medication Code Code Instructions Start End Status Dosage System Date Date Clotrimazole-B [facility] 73354859766 1-0.05 % Jun 14, Active 1 application etamethasone Externally Twice 2018 to affected a day area Aspirin ND 93150832895 81 MG Orally Once Active 1 tablet a day FreeStyle [facility] 96263051368 - Apr 24, Active as directed Riana 2017 [place] FreeStyle [facility] 92611376046 - Apr 24, Active as directed Riana 2017 [place] Omeprazole ND 53773423037 40 MG Orally Once Active 1 capsule a day Jardiance [facility] 21790379008 25 MG Orally Once Active 1 tablet a day Silvadene [facility] 11432484110 1 % Externally Active 1 application Once a day to affected area Nateglinide [facility] 04420659427 120 MG Orally Active 1 tablet Three times a day before meals BD Ultra-Fine [facility] 44628116147 4mm x 32Gm November Active 1 needle with Cady Pen subcutaneously 24, Tresiba pen [place] once a day 2018 Tresiba [facility] 31863882137 100 UNIT/ML Active inject 23 FlexTouch Subcutaneous Once units a day Omeprazole [facility] 92085193195 40 MG Orally Once Active 1 capsule a day Metformin HCl [facility] 36042398794 1000 MG Orally Active 1 tablet with Twice a day meals Lisinopril [facility] 42604739532 5 MG Orally Once Active 1 tablet a day Zyrtec Allergy [facility] 83879585214 10 MG Orally Once Active 1 tablet a day Results No Known Results Summary Purpose eClinicalWorks Submission
--- OUTSIDE RECORDS SUMMARY | 2019-08-18 21:08 | XMS REPORT ---
:1980 Author Organization eClinicalWorks Care Team Providers Name Role Phone Noah Wallace Provider Role Unavailable Allergies No Known Allergies Problems Problem Type Condition Code Onset Dates Condition Status Problem Type 2 diabetes mellitus with E11.65 Active hyperglycemia Problem Fatigue R53.83 Active Problem assisted current use of insulin Z79.4 Active Problem Hyperglycemia R73.9 Active Problem Body mass index (BMI) 23.0-23.9, Z68.23 Active adult Problem Seasonal allergies J30.2 Active Problem Gastrointestinal bleeding K92.2 Active Problem GERD (gastroesophageal reflux K21.9 Active disease) Problem Back pain, lumbosacral M54.5 Active Problem Diabetes E11.9 Active Medications Medication Code System Code Instructions Start End Date Status Dosage Date Lisinopril [facility] 47559854853 5 MG Orally Once Active 1 tablet a day Omeprazole [facility] 60844339676 40 MG Orally Once Active 1 capsule a day Results No Known Results Summary Purpose eClinicalWorks Submission
--- OUTSIDE RECORDS SUMMARY | 2019-08-18 21:08 | XMS REPORT ---
:1980 [facility] Address [address] [place] [address] Dr. [address] [place] [id number] Care Team Providers Name Role Phone Unavailable Unavailable Unavailable Problems This patient has no known problems. Allergies, Adverse Reactions, Alerts This patient has no known allergies or adverse reactions. Medications This patient has no known medications.
--- OUTSIDE RECORDS SUMMARY | 2019-08-18 21:08 | XMS REPORT ---
:1980 Author Organization eClinicalWorks Care Team Providers Name Role Phone Acevedo, Na Provider Role Unavailable Allergies, Adverse Reactions, Alerts Substance Reaction Event Type N.K.D.A. 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 56853081450 1000 MG Orally Active 1 tablet with Twice a day meals Lisinopril [facility] 75414113001 5 MG Orally Active 1 tablet Once a day Lantus [facility] 96577166551 100 UNIT/ML Active 30 units SoloStar Subcutaneous once daily FreeStyle [facility] 97541702561 - Apr 24, Active as directed Riana 2017 [place] Clotrimazole- [facility] 50106927031 1-0.05 % Jun 14, Active 1 application Betamethasone Externally 2018 to affected Twice a day area Zyrtec [facility] 91294232855 10 MG Orally Active 1 tablet Allergy Once a day Silvadene [facility] 96025462003 1 % Externally Active 1 application Once a day to affected area Jardiance [facility] 73582736530 25 MG Orally Active 1 tablet Once a day Omeprazole [facility] 48275467638 40 MG Orally Active 1 capsule Once a day FreeStyle [facility] 32540990309 - Apr 24, Active as directed Riana [address] [place] [address] [facility] 43919899982 100 MG Orally Active 1 tablet Once a day Aspirin [facility] 48779507152 81 MG Orally Active 1 tablet Once a day Results No Known Results Summary Purpose eClinicalWorks Submission
[2019-08-18 22:01] LABS: Absolute Lymphocytes (CBC) 2.1 K/uL (0.7-4.9); Basophils % 0.3 % (0-1.3); Hematocrit 45.3 % (39.6-49.0); Lymphocytes % 29.1 % (15.3-44.8); MPV 9.6 fL (7.6-11.3)
[2019-08-18 22:10] LABS: Protime INR 0.87
[2019-08-18 22:18] LABS: ALT/SGPT 21 U/L (12-78); AST/SGOT 17 U/L (15-37); Albumin 4.1 g/dL (3.4-5.0); Alkaline Phosphatase 54 U/L (45-117); BUN Blood Urea Nitrogen 12 mg/dL (7-18); Bicarbonate 25 mmol/L (21-32); Bilirubin Direct < 0.1 mg/dL (0-0.2); Bilirubin Total 0.3 mg/dL (0.2-1.0); Glucose Level 317 mg/dL (74-106); Lipase 211 U/L (73-393); Potassium 3.6 mmol/L (3.5-5.1); Sodium Level 138 mmol/L (136-145)
[2019-08-18] MEDS ORDERED: ONDANSETRON 4 MG/2 ML VIAL ONE (22:28)
[2019-08-18] MEDS ORDERED: NA CHLORIDE 0.9% 1,000 ML ONE (22:29)
[2019-08-18] MEDS ORDERED: PANTOPRAZOLE 40 MG INJ ONE ×2 (22:29→23:36)
[2019-08-18] MEDS ORDERED: NA CHLORIDE 0.9% 250 ML ONE (23:36)
[2019-08-18] MEDS ORDERED: OCTREOTIDE ACETATE 100 MCG/ML ONE (23:59)
[2019-08-18] MEDS ORDERED: NA CHLORIDE 0.9% 500 ML ONE (23:59)
[2019-08-19] MEDS ORDERED: ONDANSETRON 4 MG/2 ML VIAL ONE (00:12)
--- NOTE | 2019-08-19 00:33 | ER ---
Nurse's Notes [facility] Name: Sony Yuen Age: 39 yrs Sex: Male : 1980 Arrival Date: 08/18/2019 Time: 21:06 Bed 7 Private MD: Diagnosis: Gastrointestinal hemorrhage, unspecified Presentation: 08/18 21:21 Presenting complaint: Patient states: Pt reports he started vomiting at 1945, ea reports it was reddish brown. Pt reports he has a history of esophagitis but has not had these symptoms in the past. Pt reports he drinks about 5 to 6 beers daily. Transition of care: patient was not received from another setting of care. Onset of symptoms. Risk Assessment: Do you want to hurt yourself or someone else? Patient reports no desire to harm self or others. Initial Sepsis Screen: Does the patient meet any 2 criteria? No. Patient's initial sepsis screen is negative. Does the patient have a suspected source of infection? No. Patient's initial sepsis screen is negative. Care prior to arrival: None. 21:21 Method Of Arrival: Ambulatory ea 21:21 Acuity: BEV 3 ea Triage Assessment: 21:25 General: Appears uncomfortable, Behavior is appropriate for age. Pain: Denies pain. GI: ea Reports nausea, vomiting. Historical: - Allergies: 21:33 No Known Allergies; ao - Home Meds: 21:25 metformin 1,000 mg Oral TG24 1 tab 2 times per day [Active]; omeprazole 40 mg Oral cpDR ea 1 cap once daily [Active]; lisinopril 5 mg Oral tab 1 tab once daily [Active]; Januvia 100 mg Oral tab 1 tab once daily [Active]; nateglinide 120 mg Oral tab 1 tab 3 times per day [Active]; Jardiance 10 mg Oral tab 1 tab once daily [Active]; - PMHx: 21:25 Esophigitis; Diabetes - NIDDM; ea - PSHx: 21:25 None; ea - Immunization history:: Adult Immunizations up to date. - Coronavirus screen:: The patient has NOT traveled to [place] in the past 14 days. - Social history:: Smoking status: Patient denies any tobacco usage or history of. Patient uses alcohol, on a daily basis. claims drinking about a 6 pack/day. - Ebola Screening: : No symptoms or risks identified at this time. Screenin:23 Abuse screen: Denies threats or abuse. Nutritional screening: No deficits noted. ea Tuberculosis screening: No symptoms or risk factors identified. Fall Risk None identified. Assessment: 21:39 General: Appears in no apparent distress. comfortable, Behavior is calm, cooperative, ao appropriate for age. Neuro: Level of Consciousness is awake, alert, obeys commands, Oriented to person, place, time, situation, Appropriate for age Moves all extremities. Full function Speech is normal. Cardiovascular: Reports None. Respiratory: Airway is patent Respiratory effort is even, unlabored, Respiratory pattern is regular, symmetrical. GI: Abdomen is non-distended. : No signs and/or symptoms were reported regarding the genitourinary system. EENT: No signs and/or symptoms were reported regarding the EENT system. Derm: No signs and/or symptoms reported regarding the dermatologic system. Skin is intact, Skin is pink, warm \T\ dry. normal, Skin temperature is warm. Musculoskeletal: Circulation, motion, and sensation intact. Range of motion: intact in all extremities. 22:45 Reassessment: Patient appears in no apparent distress at this time. Patient and/or ao family updated on plan of care and expected duration. Pain level reassessed. Patient to CT. 23:50 Reassessment: Patient appears in no apparent distress at this time. Patient and/or ao family updated on plan of care and expected duration. Pain level reassessed. Protonix drip started. 08/19 00:34 Reassessment: Patient appears in no apparent distress at this time. Patient and/or ao family updated on plan of care and expected duration. Pain level reassessed. Patient to stay in the hospital. Patient agree with POC. Hospitalist at bedside at this time assessing patient. 01:30 Reassessment: Patient appears in no apparent distress at this time. Patient and/or ao family updated on plan of care and expected duration. Pain level reassessed. 02:19 Reassessment: Report given to REYNALDO Grajeda. Patient o be taking to ICU bed 1. ao Vital Signs: 08/18 21:23 BP 115 / 76; Pulse 82; Resp 18; Temp 98.3; Pulse Ox 97% on R/A; Weight 79.38 kg; Height ea 6 ft. 0 in. (182.88 cm); 22:44 BP 118 / 82; Pulse 82; Resp 18; Pulse Ox 99% on R/A; ao 0218 00:34 BP 125 / 74; Pulse 68; Resp 18; Pulse Ox 98% on R/A; ao 01:30 BP 135 / 76; Pulse 78; Resp 16; Pulse Ox 97% on R/A; ao 02:20 BP 132 / 62; Pulse 62; Resp 18; Pulse Ox 100% on R/A; ao 08/18 21:23 Body Mass Index 23.73 (79.38 kg, 182.88 cm) ea ED Course: 08/18 21:06 Patient arrived in ED. ag3 21:23 Triage completed. ea 21:23 Arm band placed on right wrist. Patient placed in an exam room, on a stretcher, on ea pulse oximetry. 21:30 Patient has correct armband on for positive identification. Placed in gown. Bed in low ea position. Call light in reach. Adult w/ patient. 21:32 Binu Levine RN is Primary Nurse. ao 21:37 Jignesh Villafana NP is PHCP. pm1 21:41 Prashanth Soto MD is Attending Physician. pm1 21:47 Inserted saline lock: 20 gauge in right antecubital area, using aseptic technique. ao Blood collected. 22:57 CT Abd/Pelvis - IV Contrast Only In Process Unspecified. EDMS 23:50 Inserted saline lock: 22 gauge in left hand, using aseptic technique. ao 08/19 00:25 Shaun Manuel is Hospitalizing Provider. pm1 02:20 No provider procedures requiring assistance completed. Patient admitted, IV remains in ao place. Administered Medications: 08/18 22:31 Drug: Zofran 4 mg Route: IVP; Site: right antecubital; ao 08/19 00:25 Follow up: Response: No adverse reaction ao 08/18 22:31 Drug: ProTONIX 40 mg Route: IVP; Site: left antecubital; ao 08/19 00:25 Follow up: Response: No adverse reaction ao 08/18 22:32 Drug: NS 0.9% 1000 ml Route: IV; Rate: 1000 ml; Site: right antecubital; ao 08/19 00:25 Follow up: IV Status: Completed infusion; IV Intake: 1000ml ao 08/18 23:51 Drug: ProTONIX 8 mg/hr Route: IV; Rate: 25 ml/hr; Site: left hand; ao 08/19 01:58 Follow up: IV Status: Infusion continued upon admission ao 08/18 23:51 Drug: Octreotide 50 mcg Route: IV; Rate: calculated rate; Site: right antecubital; ao 08/19 00:25 Follow up: Response: No adverse reaction; IV Status: Completed infusion ao 00:04 Drug: Octreotide Infusion (50 mcg/hr) - (Octreotide 500 mcg, NS 0.9% 500 ml) Route: IV; ao Rate: 50 ml/hr; Site: left hand; 01:58 Follow up: IV Status: Infusion continued upon admission ao 00:12 Drug: Zofran 4 mg Route: IVP; Site: right antecubital; ao 00:26 Follow up: Response: No adverse reaction ao Point of Care Testing: Guaiac: 08/18 22:45 Emesis Guaiac: Positive; Emesis Hemoccult Control: Pass ao Intake: 08/19 00:25 IV: 1000ml; Total: 1000ml. ao Outcome: 00:25 Decision to Hospitalize by Provider. pm1 02:20 Admitted to ICU accompanied by nurse, room 1, with chart, Report called to osorio Grajeda RN 02:20 Condition: stable 02:20 Instructed on the need for admit. 02:24 Patient left the ED. ao Signatures: Dispatcher [employer] EDMS Binu Levine RN RN ao Marinas, Patrick, MARK WORKFORCE STAFFING ADVISOR pm1 Alina Winkler RN RN ea Gomez, Alice ag3 Corrections: (The following items were deleted from the chart) 08/18 21:31 21:21 Presenting complaint: Patient states: Pt reports he started vomiting at 1945, ea reports it was reddish brown. Pt reports he has a history of esophigitis but has not had these symptoms in the past ea
--- NOTE | 2019-08-19 00:34 | EDPHYS ---
Physician Documentation [facility] Name: Sony Yuen Age: 39 yrs Sex: Male : 1980 Arrival Date: 08/18/2019 Time: 21:06 Bed 7 Private MD: ED Physician Prashanth Soto HPI: 08/18 21:47 This 39 yrs old Male presents to ER via Ambulatory with complaints of pm1 Vomiting. 21:47 The patient presents to the emergency department with vomiting, described as coffee pm1 ground in nature. Onset: The symptoms/episode began/occurred today. Possible causes: unknown, history of esophagitis and alcoholic. The symptoms are aggravated by nothing. The symptoms are alleviated by nothing. Associated signs and symptoms: Pertinent negatives: abdominal pain, constipation, diarrhea, fever. Severity of symptoms: in the emergency department the symptoms have improved Pain is currently a 0 / 10. The patient has experienced a previous episode, 4 years ago dark BM and was diagnosed with esophagitis as source of bleeding. The patient has not recently seen a physician, the patient's primary care provider is Dr. Zamora. Patient reports total of one vomit bag quantity at home. Historical: - Allergies: 21:33 No Known Allergies; ao - Home Meds: 21:25 metformin 1,000 mg Oral TG24 1 tab 2 times per day [Active]; omeprazole 40 mg Oral cpDR ea 1 cap once daily [Active]; lisinopril 5 mg Oral tab 1 tab once daily [Active]; Januvia 100 mg Oral tab 1 tab once daily [Active]; nateglinide 120 mg Oral tab 1 tab 3 times per day [Active]; Jardiance 10 mg Oral tab 1 tab once daily [Active]; - PMHx: 21:25 Esophigitis; Diabetes - NIDDM; ea - PSHx: 21:25 None; ea - Immunization history:: Adult Immunizations up to date. - Coronavirus screen:: The patient has NOT traveled to [place] in the past 14 days. - Social history:: Smoking status: Patient denies any tobacco usage or history of. Patient uses alcohol, on a daily basis. claims drinking about a 6 pack/day. - Ebola Screening: : No symptoms or risks identified at this time. ROS: 21:47 Constitutional: Negative for fever, chills, and weight loss, Cardiovascular: Negative pm1 for chest pain, palpitations, and edema, Respiratory: Negative for shortness of breath, cough, wheezing, and pleuritic chest pain. 21:47 Back: Negative for injury and pain, MS/Extremity: Negative for injury and deformity, Skin: Negative for injury, rash, and discoloration, Neuro: Negative for headache, weakness, numbness, tingling, and seizure. 21:47 Abdomen/GI: Positive for vomiting, hematemesis, Negative for abdominal pain, diarrhea, constipation. 21:47 All other systems are negative. Exam: 21:47 Constitutional: This is a well developed, well nourished patient who is awake, alert, pm1 and in no acute distress. Head/Face: Normocephalic, atraumatic. Neck: Trachea midline, no thyromegaly or masses palpated, and no cervical lymphadenopathy. Supple, full range of motion without nuchal rigidity, or vertebral point tenderness. No Meningismus. Chest/axilla: Normal chest wall appearance and motion. Nontender with no deformity. No lesions are appreciated. Cardiovascular: Regular rate and rhythm with a normal S1 and S2. No gallops, murmurs, or rubs. No pulse deficits. Respiratory: Lungs have equal breath sounds bilaterally, clear to auscultation and percussion. No rales, rhonchi or wheezes noted. No increased work of breathing, no retractions or nasal flaring. Abdomen/GI: Soft, non-tender, with normal bowel sounds. No distension or tympany. No guarding or rebound. No evidence of tenderness throughout. Back: No spinal tenderness. No costovertebral tenderness. Full range of motion. Skin: Warm, dry with normal turgor. Normal color with no rashes, no lesions, and no evidence of cellulitis. MS/ Extremity: Pulses equal, no cyanosis. Neurovascular intact. Full, normal range of motion. 21:47 Neuro: Orientation: is normal, Motor: is normal, moves all fours, Sensation: is normal, no obvious gross deficits. Vital Signs: 21:23 BP 115 / 76; Pulse 82; Resp 18; Temp 98.3; Pulse Ox 97% on R/A; Weight 79.38 kg; Height ea 6 ft. 0 in. (182.88 cm); 22:44 BP 118 / 82; Pulse 82; Resp 18; Pulse Ox 99% on R/A; ao 08/19 00:34 BP 125 / 74; Pulse 68; Resp 18; Pulse Ox 98% on R/A; ao 01:30 BP 135 / 76; Pulse 78; Resp 16; Pulse Ox 97% on R/A; ao 02:20 BP 132 / 62; Pulse 62; Resp 18; Pulse Ox 100% on R/A; ao 08/18 21:23 Body Mass Index 23.73 (79.38 kg, 182.88 cm) ea MDM: 08/18 21:41 Patient medically screened. pm1 08/19 00:04 Data reviewed: vital signs. Data interpreted: Pulse oximetry: on room air is 99 %. pm1 Interpretation: normal. 00:14 Physician consultation: Nikko Pearson MD was called at 00:14, was contacted at 00:23, pm1 regarding consult, patient's condition, and will see patient tomorrow, NPO, continue octreotide and PPI drips. 00:25 Physician consultation: Shaun Manuel was called at 00:26, was contacted at 00:26, pm1 regarding admission, patient's condition, and will see patient. 01:05 ED course: Patient placed in ICU for upper GI bleed and alcoholism. Patient drinks 6-8 pm1 beers daily for multiple years. 01:05 ED course: Total amount of vomit observed by me was 100 mL. His RN reports that there pm1 was another 100 mL total that I did not see. 200 mL vomited by patient throughout ER stay. 08/18 21:45 Order name: Basic Metabolic Panel; Complete Time: 22:19 pm08/18 21:45 Order name: CBC with Diff; Complete Time: 22:19 pm08/18 21:45 Order name: Creatinine for Radiology; Complete Time: 22:19 pm08/18 21:45 Order name: Hepatic Function; Complete Time: 22:19 pm08/18 21:45 Order name: Lipase; Complete Time: 22:19 pm08/18 21:45 Order name: ETOH Level; Complete Time: 22:19 pm1 08/18 21:45 Order name: PT-INR; Complete Time: 22:19 pm08/18 22:04 Order name: Type And Screen; Complete Time: 00:06 pm1 08/18 22:04 Order name: CT Abd/Pelvis - IV Contrast Only pm1 08/18 22:52 Order name: Gastric Occult Blood; Complete Time: 23:28 ao 08/18 21:45 Order name: IV Saline Lock; Complete Time: 21:47 pm1 08/18 21:45 Order name: Labs collected and sent; Complete Time: 21:47 pm1 08/18 22:04 Order name: Gastrocult; Complete Time: 22:44 pm1 08/18 23:42 Order name: NPO; Complete Time: 23:46 pm1 Administered Medications: 08/18 22:31 Drug: Zofran 4 mg Route: IVP; Site: right antecubital; ao 08/19 00:25 Follow up: Response: No adverse reaction ao 08/18 22:31 Drug: ProTONIX 40 mg Route: IVP; Site: left antecubital; ao 08/19 00:25 Follow up: Response: No adverse reaction ao 08/18 22:32 Drug: NS 0.9% 1000 ml Route: IV; Rate: 1000 ml; Site: right antecubital; ao 08/19 00:25 Follow up: IV Status: Completed infusion; IV Intake: 1000ml ao 08/18 23:51 Drug: ProTONIX 8 mg/hr Route: IV; Rate: 25 ml/hr; Site: left hand; ao 08/19 01:58 Follow up: IV Status: Infusion continued upon admission ao 08/18 23:51 Drug: Octreotide 50 mcg Route: IV; Rate: calculated rate; Site: right antecubital; ao 08/19 00:25 Follow up: Response: No adverse reaction; IV Status: Completed infusion ao 00:04 Drug: Octreotide Infusion (50 mcg/hr) - (Octreotide 500 mcg, NS 0.9% 500 ml) Route: IV; ao Rate: 50 ml/hr; Site: left hand; 01:58 Follow up: IV Status: Infusion continued upon admission ao 00:12 Drug: Zofran 4 mg Route: IVP; Site: right antecubital; ao 00:26 Follow up: Response: No adverse reaction ao Point of Care Testing: Guaiac: 08/18 22:45 Emesis Guaiac: Positive; Emesis Hemoccult Control: Pass ao Disposition: 08/19/19 00:25 Hospitalization ordered by Shaun Manuel for Inpatient Admission. Preliminary diagnosis is Gastrointestinal hemorrhage, unspecified. - Bed requested for Intensive Care Unit. - Status is Inpatient Admission. ao - Condition is Fair. - Problem is new. - Symptoms have improved. Addendum: 08/25/2019 16:31 Co-signature as Attending Physician, Prashanth Soto MD. m a2 Signatures: Dispatcher [employer] EDMS Ruba Damon RN Binu Gallo RN RN Jignesh Doe, [employer] pm1 Alina Winkler RN RN ea Alzahri, Mohammad, MD MD ma2 Corrections: (The following items were deleted from the chart) 08/19 00:25 00:14 Physician consultation: Nikko Pearson MD was called at 00:14, pm1 pm1 01:01 00:25 Hospitalization Ordered by Shaun Manuel for Inpatient Admission. Preliminary mw diagnosis is Gastrointestinal hemorrhage, unspecified. Bed requested for Intensive Care Unit. Status is Inpatient Admission. Condition is Fair. Problem is new. Symptoms have improved. pm1 02:24 01:01 08/19/2019 00:25 Hospitalization Ordered by Shaun Manuel for Inpatient ao Admission. Preliminary diagnosis is Gastrointestinal hemorrhage, unspecified. Bed requested for Intensive Care Unit. Status is Inpatient Admission. Condition is Fair. Problem is new. Symptoms have improved. mw
--- NOTE | 2019-08-19 00:51 | P.HP ---
Certification for Inpatient Patient admitted to: Inpatient With expected LOS: >2 Midnights Practitioner: I am a practitioner with admitting privileges, knowledge of patient current condition, hospital course, and medical plan of care. Services: Services provided to patient in accordance with Admission requirements found in Title 42 Section 412.3 of the Code of Federal Regulations Patient History Date of Service: 08/19/19 Reason for admission: Hematemesis History of Present Illness: 39-year-old gentleman with a history of insulin-dependent diabetes mellitus, history of esophagitis presented to the emergency department with a complaint of nausea and vomiting blood. He described a coffee-ground vomit, mixed with food that he just ate. This was followed by further episodes of bright red blood vomit. He reports experiencing abdominal pain 1 week ago which resolved before the vomit. This is his 2nd episode of hematemesis. 1st episode was in 2014 where patient was diagnosis with esophagitis by EGD. CT abdomen and pelvis done today in the ED shows no acute disease, no liver cirrhosis. Patient drinks about 4-5 bottles of beer every day. He denies any history of alcohol withdrawal. He reports normal colored stool for the last couple of days. Patient is admitted for further management. Allergies No Known Allergies Allergy (Verified 08/19/19 04:06) Home Medications: Aspirin [Children's Aspirin] 1 tab PO DAILY 08/26/14 Esomeprazole Mag Trihydrate [Nexium] 40 mg PO DAILY 08/26/14 Metformin HCl [Glucophage] 1,000 mg PO BID 08/26/14 Sitagliptin Phosphate [Januvia*] 100 mg PO DAILY 08/26/14 lisinopriL [Prinivil*] 5 mg PO DAILY 08/26/14 Insulin Degludec [Tresiba Flextouch U-100] 30 units SQ DAILY 08/19/19 Nateglinide [Starlix] 1 tab PO TID 08/19/19 - Past Medical/Surgical History Diabetic: Yes -: DM II -: Hypertension -: GERD -: Esophagitis -: vasectomy Psychosocial/ Personal History: Patient lives at home. - Family History Mother -: Diabetes, Cancer Father -: Cancer - Social History Alcohol use: Yes CD- Drugs: No Caffeine use: Yes Review of Systems Other: Except as documented, all other systems reviewed and negative. Physical Examination - Physical Exam General: Alert, In no apparent distress, Oriented x3 HEENT: Atraumatic, Normocephalic, PERRLA, Mucous membr. moist/pink, Sclerae nonicteric Neck: Supple, JVD not distended, No Thyromegaly Respiratory: Clear to auscultation bilaterally, Normal air movement Cardiovascular: No edema, Normal pulses, Regular rate/rhythm, Normal S1 S2 Capillary refill: <2 Seconds Gastrointestinal: Normal bowel sounds, Soft and benign, Non-distended, No tenderness Musculoskeletal: No swelling, No erythema Integumentary: No rashes, No erythema Neurological: Normal speech, Normal strength at 5/5 x4 extr - Studies Laboratory Data (last 24 hrs) 08/18/19 21:45: PT 10.3, INR 0.87 08/18/19 21:45: Creatinine 1.03 08/18/19 21:45: WBC 7.2, Hgb 15.4, Hct 45.3, Plt Count 257 08/18/19 21:45: Sodium 138, Potassium 3.6, BUN 12, Creatinine 1.05, Glucose 317 H, Total Bilirubin 0.3, AST 17, ALT 21, Alkaline Phosphatase 54, Lipase 211 Microbiology Data (last 24 hrs): 08/18/19 22:50 Gastric Aspirate Gastric Occult Blood - Final Assessment and Plan - Problems (Diagnosis) (1) Upper GI bleed Current Visit: Yes Status: Acute (2) Esophagitis Current Visit: Yes Status: Acute (3) Diabetes mellitus Current Visit: No Status: Chronic Qualifiers: Diabetes mellitus type: type 2 Diabetes mellitus 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 Watch for active bleeding. GI consult- Dr. Pearson made aware. Hold long-acting insulin Manage blood sugar with insulin sliding scale. - Advance Directives Does patient have a Living Will: No Does patient have a Durable POA for Healthcare: No
[2019-08-19] MEDS ORDERED: NA CHLORIDE 0.9% 250 ML IV SCH (02:16)
[2019-08-19] MEDS ORDERED: PANTOPRAZOLE INJ 80 MG in NA CHLORIDE 0.9% 250 ML IV SCH ×3 (02:16→10:00)
[2019-08-19] MEDS ORDERED: MORPHINE 2 MG/ML SYR IV PRN (02:16)
[2019-08-19] MEDS ORDERED: ONDANSETRON 4 MG/2 ML VIAL IV PRN (02:16)
[2019-08-19] MEDS ORDERED: NA CHLORIDE 0.9% 1,000 ML IV SCH (02:16)
[2019-08-19 03:12] LABS: Hematocrit 40.3 % (39.6-49.0)
[2019-08-19 03:59] VITALS: BMI 24.9
[2019-08-19] MEDS ORDERED: OCTREOTIDE 500 MCG in NA CHLORIDE 0.9% 500 ML IV SCH ×2 (04:00→10:00)
[2019-08-19] MEDS ORDERED: D50W 25 GM/50 ML SYRINGE/VIAL IV ONE (05:54)
[2019-08-19] MEDS ORDERED: D50W 25 GM/50 ML SYRINGE/VIAL IV PRN (05:58)
[2019-08-19] MEDS ORDERED: INSULIN -REGULAR HUMAN 50 UNIT/0.5 ML ML SQ SCH (06:00)
[2019-08-19] MEDS: D5 0.9 NS 1,000 ML IV SCH ×2 (06:02→16:00)
[2019-08-19 06:49] LABS: Hematocrit 40.4 % (39.6-49.0)
[2019-08-19] MEDS ORDERED: INFLUENZA VACCINE (for 3y+) 0.5 ML DOSE IMVAC ONE (08:00)
[2019-08-19] MEDS ORDERED: ACETAMINOPHEN 500 MG TAB PO PRN (08:50)
[2019-08-19] MEDS ORDERED: NA CHLORIDE 0.9% 1,000 ML ONE (09:33)
[2019-08-19] MEDS ORDERED: EPINEPHRINE/PF 1 MG/ML AMP ONE (09:33)
[2019-08-19] MEDS ORDERED: NS 0.9% VIAL 0 ML ONE (09:37)
[2019-08-19] MEDS ORDERED: Phenylephrine HCl 10 MG/ML 1 ML VIAL ONE (09:37)
[2019-08-19] MEDS ORDERED: ETOMIDATE 20 MG/10 ML VIAL IV ONE (09:37)
[2019-08-19] MEDS ORDERED: EPHEDRINE SULF 50 MG/ML VIAL ONE (09:37)
[2019-08-19] MEDS ORDERED: propofoL 200 MG/20 ML VIAL IV ONE (09:37)
[2019-08-19] MEDS ORDERED: LIDOCAINE 1% MPF 5 ML VIAL ONE (09:37)
[2019-08-19 10:10] LABS: Urine Appearance CLEAR; Urine Bilirubin NEGATIVE (NEG); Urine Blood NEGATIVE (NEG); Urine Color YELLOW; Urine Glucose 3+ (NEG); Urine Protein NEGATIVE (NEG); Urine Specific Gravity >=1.030 (1.005-1.030); Urine Urobilinogen 0.2 mg/dL (0.2-1.0)
--- NOTE | 2019-08-19 10:27 | RAD REPORT ---
EXAM DESCRIPTION: CT abdomen and pelvis with IV contrast CLINICAL HISTORY: 39-year-old male with GI bleed, history of esophagitis, diabetes and daily ethanol use TECHNIQUE: Axial CT imaging of the abdomen and pelvis was performed following the administration of intravenous contrast.. Sagittal and coronal reconstructed images were then performed. The CT stud y is performed according to ALARA (as low as reasonably achievable) or ALARA/IMAGE GENTLY, with autom atic adjustment of mA and/or kV according to patient size. Performed on: 08/18/2019 at 10:51 PM. COMPARISON: None FINDINGS: Lung bases: The lung bases are clear. Liver: The liver is normal in size and configuration. No focal hepatic abnormalities are identified. Liver attenuation is within normal limits. Spleen: The spleen is normal is size, configuration and attenuation. Gallbladder and bile duct: The gallbladder is well distended and unremarkable. There is no biliary ductal dilatation. Pancreas: The pancreas is grossly normal in size and configuration. Adrenal Glands: The adrenal glands are normal in size and configuration. Kidneys: The kidneys are normal in size and configuration. There is no evidence of hydronephrosis. Th ere is no evidence of nephrolithiasis. There is a 1.4 cm left renal cortical cyst. Stomach: The stomach is grossly normal. There is no definite hiatal hernia. Bowel: The bowel gas pattern is non specific and non obstructive. Appendix: The appendix is normal. Free air: There is no evidence of free air. Free fluid: There is no evidence of free fluid. Vasculature: The aorta is normal in caliber and contour. The inferior vena cava is grossly unremarkab le. Lymphadenopathy: No pathologic lymphadenopathy is identified. Bladder: The bladder is well distended and smooth in contour. Reproductive: The prostate gland is grossly within normal limits. Bones: No acute osseous abnormalities are identified. There are prominent Schmorl's nodes present osei ng the endplates of multiple thoracolumbar vertebrae. Soft tissues: No focal soft tissue abnormalities are identified. IMPRESSION: No evidence of acute intra-abdominal or intrapelvic pathology. Electronically signed by: Roxie Lane DO 08/18/2019 11:18 PM [facility] Due to temporary technical issues with the PACS/Fluency reporting system, reports are being signed by the in house radiologist as a courtesy to ensure prompt reporting. The interpreting radiologist is f ankurly responsible for the content of the report.
--- NOTE | 2019-08-19 10:28 | P.PN ---
Subjective Date of Service: 08/19/19 Chief Complaint: Hematemesis Subjective: Improving Patient seen and examined chart reviewed and case discussed with RN. Patient going for an EGD this morning. Has not had any further hematemesis. Did have low blood sugar level. States he drinks 4-5 drinks every day Review of Systems 10-point ROS is otherwise unremarkable Gastrointestinal: As per HPI Physical Examination - Vital Signs Temperature: 97.7 F Blood Pressure: 119/82 Pulse: 66 Respirations: 18 Pulse Ox (%): 99 - Physical Exam General: Alert, Oriented x3, Mild distress, Other (Ill-appearing male) HEENT: Atraumatic, PERRLA, Other (Dry mucous membranes), EOMI Neck: Supple, JVD not distended Respiratory: Clear to auscultation bilaterally, Normal air movement Cardiovascular: No edema, Normal pulses, Regular rate/rhythm, Normal S1 S2 Gastrointestinal: Normal bowel sounds, Soft and benign, Non-distended, No tenderness Musculoskeletal: No tenderness Integumentary: No rashes, No erythema Neurological: Normal speech, Normal strength at 5/5 x4 extr, Normal tone, Normal affect - Studies Laboratory Data (last 24 hrs) 08/18/19 21:45: PT 10.3, INR 0.87 08/18/19 21:45: Creatinine 1.03 08/18/19 21:45: WBC 7.2, Hgb 15.4, Hct 45.3, Plt Count 257 08/18/19 21:45: Sodium 138, Potassium 3.6, BUN 12, Creatinine 1.05, Glucose 317 H, Total Bilirubin 0.3, AST 17, ALT 21, Alkaline Phosphatase 54, Lipase 211 Microbiology Data (last 24 hrs): 08/18/19 22:50 Gastric Aspirate Gastric Occult Blood - Final Medications List Reviewed: Yes Assessment And Plan - Current Problems (Diagnosis) (1) Upper GI bleed Current Visit: Yes Status: Acute (2) Esophagitis Current Visit: Yes Status: Acute (3) Diabetes mellitus Current Visit: No Status: Chronic Qualifiers: Diabetes mellitus type: type 2 Diabetes mellitus halfway insulin use: with halfway use Diabetes mellitus complication status: with hypoglycemia Diabetes mellitus complication detail: without coma Qualified Code(s): E11.649 - Type 2 diabetes mellitus with hypoglycemia without coma; 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 Anticipate EGD this morning. Serial H&H has been stable. Slight decreased from his baseline. No further hematemesis. Will step down from ICU Continue Protonix drip Monitor for signs of alcohol withdrawal using CIWA protocol Ativan P.R.N. Multi-vitamins Patient counseled regarding alcohol cessation. Has no plans for AA or rehab
[2019-08-19] MEDS ORDERED: LORazepam 2 MG/ML VIAL IV PRN (10:35)
[2019-08-19 10:36] LABS: Urine Bacteria <20 /HPF (NONE SEEN); Urine Culture Reflex Order NOT NEEDED; Urine RBC <5 /HPF (NONE SEEN)
[2019-08-19] MEDS: INSULIN -REGULAR HUMAN 50 UNIT/0.5 ML ML SQ SCH ×3 (11:30→20:13)
[2019-08-19 11:42] LABS: Hematocrit 40.5 % (39.6-49.0)
[2019-08-19] MEDS: PANTOPRAZOLE 40MG TABLET PO SCH (17:00)
[2019-08-19] MEDS: NA CHLORIDE 0.9% 1,000 ML IV SCH (17:00)
[2019-08-19 17:37] VITALS: O2SAT 96
--- NOTE | 2019-08-19 20:57 | OP ---
Surgeon: Nikko Pearson MD Additional Attending Physician: Shaun Manuel. Procedure Performed: Esophagogastroduodenoscopy. Indication For Procedure: Hematemesis, nausea, vomiting. Plan For Anesthesia: Monitored anesthesia care. Complexity: Average. Technique: After obtaining informed consent from the patient and explaining risks and complications which include, but are not limited to bleeding, infection, perforation, and anesthesia complication, patient was placed in left lateral position and sedation was given. Scope was advanced through the m outh and carefully guided up till the second portion of the duodenum. After the completion of examin ation, scope and equipment were withdrawn and procedure terminated in a safe manner. Findings: Esophagus: There was evidence of LA grade B esophagitis in the distal esophagus. The Z-l ine was irregular. Several biopsies taken. Also, whitish plaques were seen which did come off with suctioning, so unclear if it is related to Rachel. However, biopsies were taken for evaluation. Stomach: Large amount of solid food was seen in the body and fundus, making visualization impossible in the region. Mild patchy erythema seen in the antrum. Biopsies were taken from antrum and body. Duodenum: The bulb and second portion appeared normal. Complications: None. Tolerance To Anesthesia: Excellent. Postoperative Diagnoses: Esophagitis, gastric retention, likely gastroparesis, gastritis. Plan: 1.Await pathology results. 2.Oral PPI once a day. 3.Avoidance of alcohol, strict control of diabetes, low fiber small meals. Follow up in the GI Clin ic in 1 to 2 weeks for further management. The patient can be discharged from GI point of view. I h ave started back on clear liquid diet already and can be advanced by the primary team as tolerated. US/MODL Voice ID: [id number] Report ID: [id number]
[2019-08-20] MEDS: NA CHLORIDE 0.9% 1,000 ML IV SCH (03:31)
[2019-08-20 06:38] LABS: BUN Blood Urea Nitrogen 13 mg/dL (7-18); Bicarbonate 28 mmol/L (21-32); Glucose Level 154 mg/dL (74-106); Sodium Level 141 mmol/L (136-145)
[2019-08-20] MEDS: PANTOPRAZOLE 40MG TABLET PO SCH (08:18)
[2019-08-20] MEDS: INSULIN -REGULAR HUMAN 50 UNIT/0.5 ML ML SQ SCH ×2 (08:19→12:37)
[2019-08-20] MEDS ORDERED: SITAGLIPTIN PHOS 100 MG TAB PO SCH (09:00)
[2019-08-20] MEDS ORDERED: THIAMINE HCL 100 MG TABLET PO SCH (09:00)
[2019-08-20] MEDS ORDERED: FOLIC ACID 1 MG TABLET PO SCH (09:00)
[2019-08-20] MEDS ORDERED: INSULIN DEGLUDEC 10 UNIT SQ SCH (09:00)
[2019-08-20 09:48] LABS: Absolute Lymphocytes (CBC) 1.1 K/uL (0.7-4.9); Basophils % 0.2 % (0-1.3); Lymphocytes % 21.2 % (15.3-44.8); MPV 9.8 fL (7.6-11.3); RBC Red Blood Cell Count 4.18 M/uL (4.33-5.43)
--- NOTE | 2019-08-20 12:00 | P.DS ---
Admission Date: 08/19/19 Discharge Date: 08/20/19 Disposition: ROUTINE DISCHARGE Discharge Condition: GOOD Reason for Admission: Hematemesis Consultations: GI doctor Michel Procedures: [address] showing esophagitis - Problems (1) Upper GI bleed Current Visit: Yes Status: Acute (2) Esophagitis Current Visit: Yes Status: Acute (3) Diabetes mellitus Current Visit: No Status: Chronic Qualifiers: Diabetes mellitus type: type 2 Diabetes mellitus nursing home insulin use: with intermediate designer use Diabetes mellitus complication status: with hypoglycemia Diabetes mellitus complication detail: without coma Qualified Code(s): E11.649 - Type 2 diabetes mellitus with hypoglycemia without coma; Z79.4 - penitentiary (current) use of insulin (4) Alcohol dependence Current Visit: Yes Status: Acute Qualifiers: Substance use status: uncomplicated Qualified Code(s): F10.20 - Alcohol dependence, uncomplicated Brief History of Present Illness: From H and P 39-year-old gentleman with a history of insulin-dependent diabetes mellitus, history of esophagitis presented to the emergency department with a complaint of nausea and vomiting blood. He described a coffee-ground vomit, mixed with food that he just ate. This was followed by further episodes of bright red blood vomit. He reports experiencing abdominal pain 1 week ago which resolved before the vomit. This is his 2nd episode of hematemesis. 1st episode was in 2014 where patient was diagnosis with esophagitis by EGD. CT abdomen and pelvis done today in the ED shows no acute disease, no liver cirrhosis. Patient drinks about 4-5 bottles of beer every day. He denies any history of alcohol withdrawal. He reports normal colored stool for the last couple of days. Patient is admitted for further management. Hospital Course: Patient is a 39-year-old diabetic with history of esophagitis and chronic alcohol use comes in with hematemesis. Patient was admitted to the hospital for further evaluation. GI was consulted. Patient's hemoglobin was monitored and remained stable. Did not require any blood transfusions. If emesis was positive for occult blood. Patient had EGD done which showed esophagitis. Patient was continued on Protonix. Patient did well and he was able to tolerate a GI soft diet. His symptoms resolved. No longer having any upper GI bleed. Patient was then cleared for discharge sent home in a stable condition. Patient was counseled extensively regarding alcohol cessation. He was started on thiamine and folate. Patient voiced understanding however at this time does not have any concrete plans to attend a or go to rehab. He did not have any alcohol withdrawal symptoms while in the hospital he was monitored using [facility] protocol Vital Signs/Physical Exam: Temp Pulse Resp BP Pulse Ox 97.1 F 61 18 110/71 96 08/20/19 08:00 08/20/19 08:00 08/20/19 08:00 08/20/19 08:00 08/20/19 08:00 General: Alert, In no apparent distress, Oriented x3 HEENT: Atraumatic, PERRLA, EOMI Neck: Supple, JVD not distended Respiratory: Clear to auscultation bilaterally, Normal air movement Cardiovascular: No edema, Normal pulses, Regular rate/rhythm, Normal S1 S2 Gastrointestinal: Normal bowel sounds, Soft and benign, Non-distended, No tenderness Musculoskeletal: No tenderness Integumentary: No rashes, No erythema Neurological: Normal speech, Normal strength at 5/5 x4 extr, Normal tone, Cranial nerves 3-12 intact, Normal affect Laboratory Data at Discharge: WBC 5.2 K/uL (4.3-10.9) D 08/20/19 09:24 Hgb 14.1 g/dL (13.6-17.9) 08/20/19 09:24 Hct 42.0 % (39.6-49.0) 08/20/19 09:24 Plt Count 206 K/uL (152-406) 08/20/19 09:24 PT 10.3 SECONDS (9.5-12.5) 08/18/19 21:45 INR 0.87 08/18/19 21:45 Sodium 141 mmol/L (136-145) 08/20/19 05:18 Potassium 4.0 mmol/L (3.5-5.1) 08/20/19 05:18 BUN 13 mg/dL (7-18) 08/20/19 05:18 Creatinine 0.75 mg/dL (0.55-1.3) 08/20/19 05:18 Glucose 154 mg/dL (74-106) H 08/20/19 05:18 Total Bilirubin 0.3 mg/dL (0.2-1.0) 08/18/19 21:45 AST 17 U/L (15-37) 08/18/19 21:45 ALT 21 U/L (12-78) 08/18/19 21:45 Alkaline Phosphatase 54 U/L (45-117) 08/18/19 21:45 Lipase 211 U/L (73-393) 08/18/19 21:45 Home Medications: Aspirin [Children's Aspirin] 1 tab PO DAILY 08/26/14 Metformin HCl [Glucophage] 1,000 mg PO BID 08/26/14 Sitagliptin Phosphate [Januvia*] 100 mg PO DAILY 08/26/14 lisinopriL [Prinivil*] 5 mg PO DAILY 08/26/14 Insulin Degludec [Tresiba Flextouch U-100] 30 units SQ DAILY 08/19/19 Nateglinide [Starlix] 1 tab PO TID 08/19/19 Folic Acid 1 mg PO DAILY #30 tablet 08/20/19 Pantoprazole [Protonix Tab*] 40 mg PO DAILY #30 tab 08/20/19 Thiamine HCl [Vitamin B-1*] 100 mg PO DAILY #30 tablet 08/20/19 New Medications: Folic Acid 1 mg PO DAILY #30 tablet Pantoprazole [Protonix Tab*] 40 mg PO DAILY #30 tab Thiamine HCl [Vitamin B-1*] 100 mg PO DAILY #30 tablet Patient Discharge Instructions: f/up w PCP in 2-3 days. f/up w GI Dr. Pearson in 2 weeks. Return to ER for worsening condition Diet: ADA Activity: Ad amanda Time spent managing pt's care (in minutes): 35
[2019-08-20 12:11] VITALS: BP 113/67; TEMP 98
[2019-08-20] MEDS ORDERED: INFLUENZA VACCINE (for 3y+) 0.5 ML DOSE IMVAC ONE (13:00)
== END 2019-08-20 12:53 | disposition home or self-care (01) | DRG 379 ==
LOC: ER 21:05 → ERHOLD 08-19 01:06 → 3RD-ICU 08-19 02:20 → 4TH 08-19 09:15
PROVIDERS: ADMIT Internal Medicine; ATTEND Family Medicine
PROC: 0DB68ZX Excision of Stomach, Via Natural or Artificial Opening Endoscopic, Diagnostic (ICD-10-PCS; 2019-08-19)
PROC: 0DB38ZX Excision of Lower Esophagus, Via Natural or Artificial Opening Endoscopic, Diagnostic (ICD-10-PCS; principal; 2019-08-19 10:30)
DX: K92.0 Hematemesis (principal); K22.8 Other specified diseases of esophagus; E11.69 Type 2 diabetes mellitus with other specified complication; F10.20 Alcohol dependence, uncomplicated; K20.9 Esophagitis, unspecified; Z79.4 Long term (current) use of insulin
CPT/HCPCS: 36415; 74177; 80048; 80076; 80320; 81001; 82271; 82947; 83690; 83986; 85014; 85018; 85025; 85610; 86850; 86900; 86901; 88305; 88312; 90471; 96361; 96365; 96366; 96367; 96368; 96375; 99285; C9113; J0171; J2354; J2370; J2405; J2704; J7030; J7040; J7042; Q2035; Q9967

== ENCOUNTER 2024-03-07 11:05 | Day surgery (SDC) | payer BC ==
[2024-03-04 15:53] LABS: Absolute Eosinophils 0.1 K/uL (0-0.5); Absolute Lymphocytes (CBC) 1.2 K/uL (0.7-4.9); Absolute Monocytes 0.5 K/uL (0.1-1.3); Basophils % 0.4 % (0-1.3); Eosinophils % 1.9 % (0-4.4); Hematocrit 42.5 % (39.6-49.0); Hemoglobin 14.3 g/dL (13.6-17.9); Lymphocytes % 25.2 % (15.3-44.8); MCH 34.3 pg (27.0-35.0); MCHC 33.8 g/dL (32.0-36.0); MCV 101.7 fL (80-100); MPV 8.7 fL (7.6-11.3); Monocytes % 11.1 % (3.3-12.3); Neutrophils % 61.4 % (41.7-73.7); Platelets 236 thou/uL (152-406); RBC Red Blood Cell Count 4.18 M/uL (4.33-5.43); Red Cell Distribution Width 12.3 % (12.1-15.2)
[2024-03-04 15:59] LABS: PT Prothrombin Time 10.4 SECONDS (9.4-12.5); PTT, Activated Partial Thromb 26.6 SECONDS (24.3-36.9); Protime INR 0.93
[2024-03-04 16:07] LABS: Anion Gap 7.2 mEq/L (5.0-15.0); Potassium 4.2 mEq/L (3.5-5.1)
--- NOTE | 2024-03-04 16:15 | RAD REPORT ---
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 COMPARISON: <Comparisons> FINDINGS: The lungs are clear. The heart is normal in size. No displaced fractures. IMPRESSION: No acute or concerning finding suspected.
--- NOTE | 2024-03-05 12:09 | EKG ---
Test Date: 2024-03-04 Test Time: 15:33:37 Test Analyst: KAYLEIGH MEASUREMENT RESULTS: Intervals: Rate: 55 UT: 144 QRSD: 88 QT: 422 QTc: 403 [place]: P: 60 UT: 144 QRS: 65 T: 63 INTERPRETIVE STATEMENTS: Sinus bradycardia Otherwise normal ECG Compared to ECG 12/09/2018 23:25:12 Sinus rhythm no longer present Electronically Signed On 03-05-24 12:06:36 CDT by Bishnu Dao
[2024-03-07] MEDS ORDERED: NA CHLORIDE 0.9% 500 ML ONE (11:20)
[2024-03-07] MEDS ORDERED: LIDOCAINE 1% 20 ML MDV ONE (11:55)
[2024-03-07] MEDS ORDERED: HEPA 1000U/500MLS 2,000 UNIT/1,000 ML BAG IV ONE (12:17)
[2024-03-07] MEDS ORDERED: VERAPAMIL HCL 10 MG/4 ML VIAL IV ONE (12:17)
[2024-03-07] MEDS ORDERED: MIDAZOLAM HCL 2 MG/2 ML INJ ONE (12:17)
[2024-03-07] MEDS ORDERED: HEPARIN 10,000 UNIT/10 ML VIAL IV ONE (12:17)
[2024-03-07] MEDS ORDERED: HEPARIN 5000 UNIT/ML 1 ML VIAL ONE (12:18)
[2024-03-07] MEDS ORDERED: CLOPIDOGREL 75 MG TABLET ONE (12:18)
[2024-03-07] MEDS ORDERED: FENTANYL CITR 100 MCG/2 ML ONE (12:18)
[2024-03-07] MEDS ORDERED: TICAGRELOR 90 MG TABLET PO ONE (12:18)
[2024-03-07] MEDS ORDERED: ATROPINE SULF 1 MG/10 ML SYR IV ONE (12:18)
[2024-03-07] MEDS ORDERED: ASPIRIN 325 MG TAB ONE (12:19)
[2024-03-07 15:05] VITALS: BP 123/57; O2SAT 99
--- NOTE | 2024-03-07 15:18 | OP ---
Date of Procedure: 03/07/2024 Surgeon: SHAD ROJAS Procedures Performed: 1.Selective coronary angiogram. 2.Left heart catheterization. Indication: Chest pain with a grossly abnormal stress test. Access: Right radial artery 6-Bhut[place] closed with TR band. Anesthesia: Total sedation time is 45 minutes. Complications: None. Bleeding: Less than 20 mL. Description Of Procedure: After risks, benefits, and alternatives were explained, patient agreed to the procedure and signed informed consent. The patient was brought into cardiac catheterization [facility], prepped and draped in sterile fashion. Then, I accessed right radial artery using pediatric micropuncture kit, placed a 6-Bhut[place] Slender sheath, took 5-[place] 4 catheter into the aortic r oot, crossed the aortic valve, measured the LVEDP. Pullback did not record any gradient. Then, enga ged the left main and took standard views and then the RCA and took standard views and then removed t he catheter and the sheath, placed TR band with good hemostasis. Findings: 1.Left main is large and normal. 2.LAD: A large vessel. Proximal segment is normal. Mid segment, there is focal 30% to 40% stenosi s after diagonal takeoff, and diagonal branch has proximal 30% stenosis. Rest of LAD appears to be n ormal. 3.Left circumflex is moderate-sized vessel, normal. 4.RCA: Large size vessel and dominant and normal. Normal LPDA and PLB. PLB is small. 5.LVEDP slightly elevated at 50 mmHg. Conclusions: 1.Mild nonobstructive coronary artery disease. 2.Mildly elevated LVEDP. Recommendation: Medical management. /MODL Voice ID: [id number] Report ID: [id number]
== END 2024-03-07 15:11 | disposition home or self-care (01) ==
LOC: CCL 11:05
PROVIDERS: ATTEND Internal Medicine
DX: I25.10 Atherosclerotic heart disease of native coronary artery without angina pectoris (principal); I73.9 Peripheral vascular disease, unspecified; I65.29 Occlusion and stenosis of unspecified carotid artery; E11.9 Type 2 diabetes mellitus without complications; Z79.82 Long term (current) use of aspirin; Z79.84 Long term (current) use of oral hypoglycemic drugs; Z79.85 Long-term (current) use of injectable non-insulin antidiabetic drugs; Z79.899 Other long term (current) drug therapy
CPT/HCPCS: 93005; 85025; 80048; 36415; 85610; 82947; 85730; 71046; 93458; 76937; C1893; Q9966; J1644; J2001; J7040; J0461; J2250; J3010